=== PATIENT | male | born 1935 | race Caucasian/White ===

== ENCOUNTER 2017-04-16 10:11 | Inpatient (IN) | payer MEDICARE, BC ==
[2017-04-16 10:50] LABS: Basophils # (A) 0.1 k/uL (0-0.2); Basophils % (A) 1 %; CH 31.5; CHCM 35.3; Eosinophils # (A) 0.2 k/uL (0-0.7); Eosinophils % (A) 2 %; HCT 45.4 % (39.0-53.0); HDW 2.38; HGB 15.1 gm/dL (13.0-17.5); Luc # (Auto) 0.19; Luc % (Auto) 2; Lymphocytes # (A) 0.7 k/uL (1.0-4.8); Lymphocytes % (A) 7 %; MCHC 33.4 g/dL (31.0-37.0); MCV 89.8 fL (80.0-100.0); Mean Platelet Volume 8.4; Monocytes # (A) 0.8 k/uL (0-1.0); Monocytes % (A) 8 %; Neutrophils # (A) 8.2 k/uL (1.3-7.7); Neutrophils % (A) 81 %; RBC 5.05 m/uL (4.30-5.90); RDW 13.5 % (11.5-15.5); WBC 10.1 k/uL (3.8-10.6); WBC (Perox) 9.73
--- NOTE | 2017-04-16 10:54 | ED ---
Weakness HPI - General Chief complaint: Weakness Stated complaint: Left side weakness/left leg infected Time Seen by Provider: 04/16/17 10:25 Source: patient, family, RN notes reviewed, old records reviewed Mode of arrival: wheelchair Limitations: no limitations - History of Present Illness Initial comments: This is an 81-year-old male with a history of a CVA with residual left-sided weakness from 1994 who was brought in by family today for evaluation for several issues. He apparently woke up with increased left lower extremity weakness also he has left leg swelling and redness he is currently being treated for a cellulitis and is on antibiotics which he's been on for about a week but it seems be getting worse. Additionally he's had a cough no reports of fevers chills or sweats no nausea no vomiting the patient does have left- sided upper extremity weakness which she states is no different than usual. Patient states he went to bed around 10 or 10:30 last evening and woke up with this new finding today. He has no other complaints at this time. MD Complaint: focal weakness - Related Data Home Medications Medication Instructions Recorded Confirmed Aspirin EC [Ecotrin Low Dose] 81 mg PO DAILY 04/16/17 04/16/17 Atenolol [Tenormin] 25 mg PO BID 04/16/17 04/16/17 Isosorbide Mononitrate ER [Imdur] 30 mg PO DAILY 04/16/17 04/16/17 Levothyroxine Sodium [Synthroid] 50 mcg PO DAILY 04/16/17 04/16/17 Multivit-Min/FA/Lycopen/Lutein 1 tab PO DAILY 04/16/17 04/16/17 [Centrum Silver Men Tablet] Simvastatin [Zocor] 20 mg PO HS 04/16/17 04/16/17 Sulfamethoxazole/Trimethoprim 1 tab PO BID 04/16/17 04/16/17 [Bactrim DS 800-160 mg] Valsartan [Diovan] 320 mg PO DAILY 04/16/17 04/16/17 amLODIPine BESYLATE [Norvasc] 5 mg PO BID 04/16/17 04/16/17 glipiZIDE XL [Glucotrol Xl] 2.5 mg PO DAILY 04/16/17 04/16/17 sitaGLIPtin PHOSPHATE [Januvia] 100 mg PO DAILY 04/16/17 04/16/17 Allergies Allergy/AdvReac Type Severity Reaction Status Date / Time No Known Allergies Allergy Verified 04/16/17 10:38 Review of Systems ROS Statement: Those systems with pertinent positive or pertinent negative responses have been documented in the HPI. ROS Other: All systems not noted in ROS Statement are negative. Past Medical History Past Medical History: Coronary Artery Disease (CAD), CVA/TIA, Diabetes Mellitus , Hyperlipidemia, Hypertension, Myocardial Infarction ([place]) History of Any Multi-Drug Resistant Organisms: None Reported Past Surgical History: Coronary Bypass/CABG Past Psychological History: No Psychological Hx Reported Smoking Status: Never smoker Past Alcohol Use History: None Reported Past Drug Use History: None Reported General Exam - General Exam Comments Initial Comments: This is a well-developed well-nourished awake alert oriented 3 male Limitations: no limitations General appearance: alert, in no apparent distress, other (Left facial asymmetry is noted which is residual from his previous stroke) Head exam: Present: normocephalic Eye exam: Present: normal appearance, PERRL, EOMI. Absent: scleral icterus, conjunctival injection, periorbital swelling ENT exam: Present: normal exam, mucous membranes moist Neck exam: Present: normal inspection. Absent: tenderness, meningismus, lymphadenopathy Respiratory exam: Present: rhonchi (Slight left basilar rhonchi), decreased breath sounds Cardiovascular Exam: Present: regular rate, normal rhythm, normal heart sounds. Absent: systolic murmur, diastolic murmur, rubs, gallop, clicks GI/Abdominal exam: Present: soft, normal bowel sounds. Absent: distended, tenderness, guarding, rebound, rigid Rectal exam: Present: deferred Extremities exam: Present: normal capillary refill, other (Left lower extremity demonstrates erythema with increased localized temperature and pedal edema up to the knee. Left upper extremity demonstrates hemiparesis). Absent: full ROM Neurological exam: Present: alert, oriented X3, other (Left facial asymmetry is noted left upper extremity hemiparesis left lower extremity hemiparesis) Psychiatric exam: Present: normal affect, normal mood Skin exam: Present: warm, dry. Absent: normal color Course Vital Signs 04/16/17 10:15 Temperature 97.2 F L Pulse Rate 60 Respiratory 18 Rate Blood Pressure 147/60 O2 Sat by Pulse 91 L Oximetry EKG Findings - EKG Results: EKG: interpreted by ERMD (Ventricular rate 62 QRS 168 daily since QTC of 478/ 485 red bundle-branch block) Medical Decision Making - Medical Decision Making I did discuss findings with patient family the CAT scan is negative for acute findings. X-ray does show evidence of CHF. Patient will be admitted to discuss case with Dr. Thompson. - Lab Data Result diagrams: 04/16/17 10:30 04/16/17 10:30 Lab Results 04/16/17 04/16/17 04/16/17 Range/Units 10:30 10:30 10:30 WBC 10.1 (3.8-10.6) k/uL RBC 5.05 (4.30-5.90) m/uL Hgb 15.1 (13.0-17.5) gm/dL Hct 45.4 (39.0-53.0) % MCV 89.8 (80.0-100.0) fL MCH 30.0 (25.0-35.0) pg MCHC 33.4 (31.0-37.0) g/dL RDW 13.5 (11.5-15.5) % Plt Count 227 (150-450) k/uL Neutrophils % 81 % Lymphocytes % 7 % Monocytes % 8 % Eosinophils % 2 % Basophils % 1 % Neutrophils # 8.2 H (1.3-7.7) k/uL Lymphocytes # 0.7 L (1.0-4.8) k/uL Monocytes # 0.8 (0-1.0) k/uL Eosinophils # 0.2 (0-0.7) k/uL Basophils # 0.1 (0-0.2) k/uL PT (9.0-12.0) sec INR (<1.2) APTT (22.0-30.0) sec Sodium 134 L (137-145) mmol/L Potassium 5.0 (3.5-5.1) mmol/L Chloride 99 (98-107) mmol/L Carbon Dioxide 26 (22-30) mmol/L Anion Gap 9 mmol/L BUN 25 H (9-20) mg/dL Creatinine 1.17 (0.66-1.25) mg/dL Est GFR (MDRD) Af Amer >60 (>60 ml/min/1.73 sqM) Est GFR (MDRD) Non-Af 60 (>60 ml/min/1.73 sqM) Glucose 182 H (74-99) mg/dL Calcium 8.5 (8.4-10.2) mg/dL Magnesium 2.0 (1.6-2.3) mg/dL Total Bilirubin 0.5 (0.2-1.3) mg/dL AST 24 (17-59) U/L ALT 26 (21-72) U/L Alkaline Phosphatase 57 (38-126) U/L Total Creatine Kinase 52 L (55-170) U/L CK-MB (CK-2) 0.9 (0.0-2.4) ng/mL CK-MB (CK-2) Rel Index 1.7 Troponin I <0.012 (0.000-0.034) ng/mL NT-Pro-B Natriuret Pep pg/mL Total Protein 6.3 (6.3-8.2) g/dL Albumin 3.1 L (3.5-5.0) g/dL Urine Color Urine Appearance (Clear) Urine pH (5.0-8.0) Ur Specific [place] (1.001-1.035) Urine Protein (Negative) Urine Glucose (UA) (Negative) Urine Ketones (Negative) Urine Blood (Negative) Urine Nitrite (Negative) Urine Bilirubin (Negative) Urine Urobilinogen (<2.0) mg/dL Ur Leukocyte Esterase (Negative) 04/16/17 04/16/17 04/16/17 Range/Units 10:30 10:30 11:25 WBC (3.8-10.6) k/uL RBC (4.30-5.90) m/uL Hgb (13.0-17.5) gm/dL Hct (39.0-53.0) % MCV (80.0-100.0) fL MCH (25.0-35.0) pg MCHC (31.0-37.0) g/dL RDW (11.5-15.5) % Plt Count (150-450) k/uL Neutrophils % % Lymphocytes % % Monocytes % % Eosinophils % % Basophils % % Neutrophils # (1.3-7.7) k/uL Lymphocytes # (1.0-4.8) k/uL Monocytes # (0-1.0) k/uL Eosinophils # (0-0.7) k/uL Basophils # (0-0.2) k/uL PT 12.2 H (9.0-12.0) sec INR 1.2 H (<1.2) APTT 26.7 (22.0-30.0) sec Sodium (137-145) mmol/L Potassium (3.5-5.1) mmol/L Chloride (98-107) mmol/L Carbon Dioxide (22-30) mmol/L Anion Gap mmol/L BUN (9-20) mg/dL Creatinine (0.66-1.25) mg/dL Est GFR (MDRD) Af Amer (>60 ml/min/1.73 sqM) Est GFR (MDRD) Non-Af (>60 ml/min/1.73 sqM) Glucose (74-99) mg/dL Calcium (8.4-10.2) mg/dL Magnesium (1.6-2.3) mg/dL Total Bilirubin (0.2-1.3) mg/dL AST (17-59) U/L ALT (21-72) U/L Alkaline Phosphatase (38-126) U/L Total Creatine Kinase (55-170) U/L CK-MB (CK-2) (0.0-2.4) ng/mL CK-MB (CK-2) Rel Index Troponin I (0.000-0.034) ng/mL NT-Pro-B Natriuret Pep 4000 pg/mL Total Protein (6.3-8.2) g/dL Albumin (3.5-5.0) g/dL Urine Color Yellow Urine Appearance Clear (Clear) Urine pH 6.0 (5.0-8.0) Ur Specific [place] 1.022 (1.001-1.035) Urine Protein Trace H (Negative) Urine Glucose (UA) Negative (Negative) Urine Ketones Negative (Negative) Urine Blood Negative (Negative) Urine Nitrite Negative (Negative) Urine Bilirubin Negative (Negative) Urine Urobilinogen <2.0 (<2.0) mg/dL Ur Leukocyte Esterase Negative (Negative) - Radiology Data Radiology results: report reviewed (I did review the imaging and report or is evidence of congestive heart failure.), image reviewed Critical Care Time Critical Care Time: Yes Critical Care Time: 31 minutes of critical care time which includes initial presentation with history physical labs x-rays reevaluation the patient response to therapy. Discussed with the patient family members on several occasions the findings. Discussed with the main physician admission orders documentation the above. Disposition Clinical Impression: Congestive heart failure (CHF), Left leg cellulitis, Failure of outpatient treatment, Hypoxemia Disposition: ADMITTED IP TO THIS HOSP Condition: Stable Referrals: Damian Andrew MD [Primary Care Provider] - 1-2 days Decision Time: 11:40
[2017-04-16 10:59] LABS: INR 1.2 (<1.2); Partial Thromboplastin Time 26.7 sec (22.0-30.0); Prothrombin Time 12.2 sec (9.0-12.0)
[2017-04-16 11:04] LABS: ALT 26 U/L (21-72); AST 24 U/L (17-59); Alkaline Phosphatase 57 U/L (38-126); Anion Gap 9 mmol/L; Blood Urea Nitrogen 25 mg/dL (9-20); Calcium 8.5 mg/dL (8.4-10.2); Carbon Dioxide 26 mmol/L (22-30); Chloride 99 mmol/L (98-107); Glucose 182 mg/dL (74-99); Non-African American GFR(MDRD) 60 (>60 ml/min/1.73 sqM); Sodium 134 mmol/L (137-145); Total Bilirubin 0.5 mg/dL (0.2-1.3); Total Protein 6.3 g/dL (6.3-8.2)
--- NOTE | 2017-04-16 11:07 | XR ---
EXAMINATION TYPE: XR chest 2V DATE OF EXAM: 04/16/2017 COMPARISON: 11/30/2013 HISTORY: Weakness TECHNIQUE: Frontal and lateral views of the chest are obtained. FINDINGS: Cardiomegaly is evident as well as mild pulmonary vascular congestion. Intact midline ster notomy wires are seen. Remainder the lungs are clear with no focal consolidation, pleural effusion or pneumothorax. Degenerative changes of the osseous structures and prior left mid clavicular fracture are noted diffuse demineralization is noted of the thoracic spine. IMPRESSION: Mild pulmonary vascular congestion and cardiomegaly that may relate to congestive heart failure. No focal consolidation.
[2017-04-16 11:09] LABS: Creatine Kinase 52 U/L (55-170)
--- NOTE | 2017-04-16 11:13 | CT ---
EXAMINATION TYPE: CT brain wo con DATE OF EXAM: 04/16/2017 COMPARISON: 11/27/2013 HISTORY: Patient complains of left leg weakness and infection. CT DLP: 849.2 mGycm. Automated Exposure Control for Dose Reduction was Utilized. TECHNIQUE: CT scan of the head is performed without contrast. FINDINGS: Encephalomalacia is noted within the right frontoparietal lobe with ex vacuo dilatation o f the lateral horn of the right ventricle. Confluent areas of hypoattenuation are seen within the sub cortical and periventricular white matter including the external capsules, most commonly relating to chronic microangiopathy. Symmetric prominence of the peripheral sulci and ventricular system compatible with age-related volum e loss. There is no acute intracranial hemorrhage, mass effect, or midline shift identified. The glob es are intact and the visualized sinuses are clear. Atherosclerosis is seen of the intracranial vascu lature. IMPRESSION: 1. No acute intracranial hemorrhage, mass effect, or midline shift is seen. 2. 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 3. Age-related volume loss and diffuse nonspecific white matter change, most likely related to chroni c microangiopathy.
[2017-04-16 11:21] LABS: Creatine Kinase MB 0.9 ng/mL (0.0-2.4); Troponin I <0.012 ng/mL (0.000-0.034)
[2017-04-16 11:36] LABS: Appearance,Urine Clear (Clear); Bilirubin,Urine Negative (Negative); Glucose,Urine (UA) Negative (Negative); Ketones,Urine Negative (Negative); Leukocyte Esterase,Urine Negative (Negative); Nitrite,Urine Negative (Negative); Protein,Urine Trace (Negative); Specific Gravity,Urine 1.022 (1.001-1.035); UA Billing (MACRO vs. MICRO) CHEM; Urobilinogen,Urine <2.0 mg/dL (<2.0)
[2017-04-16] MEDS ORDERED: NITROGLYCERIN OINT 1 INCH/GM PACKET TOPICAL STA (11:47)
[2017-04-16] MEDS ORDERED: FUROSEMIDE 10 MG/ML 4 ML VIAL IV STA (11:47)
[2017-04-16 12:37] LABS: Hemoglobin A1C 7.8 % (4.2-6.1)
[2017-04-16] MEDS: SODIUM CHLORIDE 0.9% 1,000 ML IV SCH (13:15)
[2017-04-16 16:39] LABS: Glucose,Whole Blood 116 mg/dL (75-99)
[2017-04-16] MEDS: CLINDAMYCIN 600 MG in DEXTROSE 5% IN WATER 50 ML IVPB SCH ×2 (17:59)
[2017-04-16] MEDS: NITROGLYCERIN OINT 1 INCH/GM PACKET TOPICAL SCH ×2 (18:02→21:00)
[2017-04-16] MEDS: ATORVASTATIN 10 MG TAB PO SCH (20:55)
[2017-04-16] MEDS: amLODIPine 5 MG TAB PO SCH (20:55)
[2017-04-16] MEDS: ATENOLOL 25 MG TAB PO SCH (20:55)
[2017-04-16] MEDS: FUROSEMIDE 10 MG/ML 4 ML VIAL IV SCH (20:56)
[2017-04-16] MEDS ORDERED: HEPARIN SODIUM,PORCINE 5,000 UNIT/ML 1 ML VIAL SQ SCH (21:00)
[2017-04-16 21:09] LABS: Glucose,Whole Blood 140 mg/dL (75-99)
[2017-04-17] MEDS: CLINDAMYCIN 600 MG in DEXTROSE 5% IN WATER 50 ML IVPB SCH ×8 (00:04→18:35)
[2017-04-17 06:01] LABS: Glucose,Whole Blood 111 mg/dL (75-99)
[2017-04-17] MEDS: LEVOTHYROXINE 50 MCG TAB PO SCH (06:45)
[2017-04-17] MEDS: ENOXAPARIN 40 MG/0.4 ML SYRINGE SQ SCH (08:53)
[2017-04-17] MEDS: NITROGLYCERIN OINT 1 INCH/GM PACKET TOPICAL SCH ×2 (08:54→12:02)
[2017-04-17] MEDS: amLODIPine 5 MG TAB PO SCH ×2 (08:54→20:15)
[2017-04-17] MEDS: ATENOLOL 25 MG TAB PO SCH ×2 (08:54→20:15)
[2017-04-17] MEDS: ISOSORBIDE MONONITRATE ER 30 MG TAB.ER.24H PO SCH (08:54)
[2017-04-17] MEDS: ASPIRIN 81 MG CHEW PO SCH (08:54)
[2017-04-17] MEDS: MULTIVITAMINS, THERA 1 EACH TAB PO SCH (08:54)
[2017-04-17] MEDS: VALSARTAN 160 MG TAB PO SCH (08:54)
[2017-04-17] MEDS: LINAGLIPTIN 5 MG TABLET PO SCH (08:56)
[2017-04-17] MEDS: FUROSEMIDE 10 MG/ML 4 ML VIAL IV SCH (08:57)
[2017-04-17 10:04] LABS: Calcium 8.7 mg/dL (8.4-10.2)
[2017-04-17 10:07] LABS: Basophils % (A) 0 %; CH 31.3; CHCM 34.7; Eosinophils # (A) 0.2 k/uL (0-0.7); Eosinophils % (A) 3 %; HCT 45.3 % (39.0-53.0); HDW 2.35; Luc # (Auto) 0.29; Luc % (Auto) 3; Lymphocytes # (A) 1.2 k/uL (1.0-4.8); Lymphocytes % (A) 14 %; MCH 30.1 pg (25.0-35.0); MCHC 33.2 g/dL (31.0-37.0); MCV 90.6 fL (80.0-100.0); Mean Platelet Volume 8.2; Monocytes # (A) 0.9 k/uL (0-1.0); Monocytes % (A) 10 %; Neutrophils # (A) 6.3 k/uL (1.3-7.7); Neutrophils % (A) 70 %; RDW 13.3 % (11.5-15.5); WBC 8.9 k/uL (3.8-10.6); WBC (Perox) 8.86
[2017-04-17 11:42] LABS: Glucose,Whole Blood 144 mg/dL (75-99)
[2017-04-17] MEDS: SODIUM CHLORIDE 0.9% 1,000 ML IV SCH (12:01)
[2017-04-17 14:00] VITALS: RESP 18
--- NOTE | 2017-04-17 14:38 | P.HPIM ---
History of Present Illness H&P Date: 04/17/17 Chief Complaint: Redness swelling of the left leg History of presenting complaint: This is a very pleasant 81-year-old patient of Dr. Brooks. Chronic stable medical conditions include coronary artery disease, stroke with left-sided weakness and dysarthria, diabetes, hypertension, hyperlipidemia, hypothyroid. Patient normally uses a wheelchair to get about. Patient had vein stripping done for the left leg. For his bypass. She presented redness of left lower extremity swelling some weeping blisters and presents for the same. Denies any fever minimal tenderness. Started on IV clindamycin the ER. ER thought patient may have CHF also put him on IV Lasix. The patient denies any shortness of breath. Denies any orthopnea. Denies any chest pain. GEN.: Tired EYES: None HEENT: None NECK: None RESPIRATORY: None CARDIOVASCULAR: None GASTROINTESTINAL: None GENITOURINARY: None MUSCULOSKELETAL: None LYMPHATICS: None HEMATOLOGICAL: None PSYCHIATRY: None NEUROLOGICAL: Dysarthria and some weakness on the left side. DERMATOLOGICAL: As above Past medical history: Coronary artery disease, stroke causing left-sided weakness and dysarthria, diabetes, hyperlipidemia, hypertension, hypothyroid, Past surgical history: Recorded bypass, cardiac cath and stent, bypass in 1994 at [facility], right carotid endarterectomy, bilateral cataract removals and lens implant, Home medications: Reviewed in computer ALLERGIES: None Social history: Lives by himself. No smoking or alcohol Family history: Father of a heart attack at age of 65 VITAL SIGNS: 97.2, 60, 18, 147-60, 91% room air GENERAL: Average built, sitting up, comfortable. EYES: Pupils equal. Conjunctiva normal. HEENT: External appearance of nose and ears normal, oral cavity grossly normal. NECK: JVD not raised; masses not palpable. HEART: First and second heart sounds are normal; edema especially of the left lower extremity, with fluid blisters. LUNGS: Respiratory rate normal; clear to auscultation. ABDOMEN: Soft, nontender, liver spleen not palpable, no masses palpable. LYMPHATICS: No lymph nodes palpable in the axilla and neck. PSYCH: Alert and oriented x3; mood and affect normal. NEUROLOGICAL: Cranial nerves grossly intact; no facial asymmetry, power and sensation grossly intact, dysarthria present, EXTREMITY: Redness of the left lower extremity below the knee, mild tenderness fluid blisters Investigations: wcc 10.1, hemoglobin 15.1, potassium 5, BUN 25, creatinine 1.17 EKG-right bundle branch block Assessment: - Left lower extreme the cellulitis acute below the knee -Lower extremity venous insufficiency more and than the left leg , from prior vein stripping, causing fluid blisters -No clinical evidence of CHF -Coronary artery disease with prior history of stent and bypass -Chronic dysarthria from chronic stroke -diabetes mellitus type 2 on oral hypoglycemic -Hyperlipidemia -Essential hypertension -Hypothyroid thyroidism -Chronic medical debility from stroke uses a wheelchair -Acute renal failure likely prerenal from diuresis Plan: Patient started on IV clindamycin. We'll use Silvadene cream with Kerlix and Adolfo wrap of lower extremity twice a day. Home medications were resumed. Care was discussed with the patient. Will DC patient's IV Lasix as patient does not seem to have CHF. We will gently hydrate the patient to improve his renal function. Check labs in the morning. Care was discussed with the patient. Past Medical History Past Medical History: Coronary Artery Disease (CAD), CVA/TIA, Diabetes Mellitus , Hyperlipidemia, Hypertension, Myocardial Infarction ([place]), Skin Disorder, Thyroid Disorder Additional Past Medical History / Comment(s): NIDDM type II, current cellulitis L lower leg, 1995 CVA with L sided weakness, gait dysfunction-pt is wheelchair bound, past L clavicle fx, hypothyroid. Last Myocardial Infarction Date:: 1994 History of Any Multi-Drug Resistant Organisms: None Reported Past Surgical History: Coronary Bypass/CABG, Heart Catheterization With Stent Additional Past Surgical History / Comment(s): Pt states he had 4 vessel CABG in 1994 at [facility] in [place], PCI with stent "several yrs ago," R caratid endartectomy, bilateral cataract removals with lens implants. Past Anesthesia/Blood Transfusion Reactions: No Reported Reaction Date of Last Stent Placement:: "several years ago." Past Psychological History: No Psychological Hx Reported Additional Psychological History / Comment(s): Pt resides alone in his own home. He is wheelchair bound. He has a caregiver who comes to the house from morning until noon and then comes back in the evenings. She assists his with ADLs. He manages his own medications. Everything he needs is on one level. He has meals on wheels. He does not drive, his brother has a wheelchair assessible van and takes pt to appts. He uses a L shoe with a brace. He needs assistance transferring into his wheelchair. Smoking Status: Never smoker Past Alcohol Use History: None Reported Past Drug Use History: None Reported - Past Family History Father Family Medical History: Myocardial Infarction (MS) Additional Family Medical History / Comment(s): Father of a MS at the age of 65 yrs. Mother Family Medical History: Myocardial Infarction (MS) Additional Family Medical History / Comment(s): Mother of a MS at the age of 69yrs. Medications and Allergies Home Medications Medication Instructions Recorded Confirmed Type Aspirin EC [Ecotrin Low Dose] 81 mg PO DAILY 04/16/17 04/16/17 History Atenolol [Tenormin] 25 mg PO BID 04/16/17 04/16/17 History Isosorbide Mononitrate ER [Imdur] 30 mg PO DAILY 04/16/17 04/16/17 History Levothyroxine Sodium [Synthroid] 50 mcg PO DAILY 04/16/17 04/16/17 History Multivit-Min/FA/Lycopen/Lutein 1 tab PO DAILY 04/16/17 04/16/17 History [Centrum Silver Men Tablet] Simvastatin [Zocor] 20 mg PO HS 04/16/17 04/16/17 History Sulfamethoxazole/Trimethoprim 1 tab PO BID 04/16/17 04/16/17 History [Bactrim DS 800-160 mg] Valsartan [Diovan] 320 mg PO DAILY 04/16/17 04/16/17 History amLODIPine BESYLATE [Norvasc] 5 mg PO BID 04/16/17 04/16/17 History glipiZIDE XL [Glucotrol Xl] 2.5 mg PO DAILY 04/16/17 04/16/17 History sitaGLIPtin PHOSPHATE [Januvia] 100 mg PO DAILY 04/16/17 04/16/17 History Allergies Allergy/AdvReac Type Severity Reaction Status Date / Time No Known Allergies Allergy Verified 04/16/17 10:38 Results CBC & Chem 7: 04/17/17 09:32 04/17/17 09:32
[2017-04-17 16:45] LABS: Glucose,Whole Blood 81 mg/dL (75-99)
[2017-04-17] MEDS: SODIUM CHLORIDE 0.45% 1,000 ML IV SCH (19:52)
[2017-04-17] MEDS: ATORVASTATIN 10 MG TAB PO SCH (20:15)
[2017-04-17 20:54] LABS: Glucose,Whole Blood 129 mg/dL (75-99)
[2017-04-18] MEDS: CLINDAMYCIN 600 MG in DEXTROSE 5% IN WATER 50 ML IVPB SCH ×8 (00:11→18:34)
[2017-04-18] MEDS: LEVOTHYROXINE 50 MCG TAB PO SCH (05:50)
[2017-04-18 06:06] LABS: Glucose,Whole Blood 112 mg/dL (75-99)
[2017-04-18 06:39] LABS: Basophils % (A) 0 %; CH 31.4; CHCM 34.8; Eosinophils # (A) 0.6 k/uL (0-0.7); Eosinophils % (A) 6 %; HCT 42.3 % (39.0-53.0); HDW 2.38; HGB 14.3 gm/dL (13.0-17.5); Luc # (Auto) 0.37; Luc % (Auto) 4; Lymphocytes # (A) 1.5 k/uL (1.0-4.8); Lymphocytes % (A) 16 %; MCH 30.6 pg (25.0-35.0); MCHC 33.8 g/dL (31.0-37.0); MCV 90.6 fL (80.0-100.0); Mean Platelet Volume 8.3; Monocytes % (A) 11 %; Neutrophils # (A) 5.7 k/uL (1.3-7.7); Neutrophils % (A) 62 %; RBC 4.67 m/uL (4.30-5.90); RDW 13.5 % (11.5-15.5); WBC 9.1 k/uL (3.8-10.6); WBC (Perox) 8.97
[2017-04-18 06:58] LABS: Calcium 8.3 mg/dL (8.4-10.2); Potassium 4.2 mmol/L (3.5-5.1)
[2017-04-18] MEDS: amLODIPine 5 MG TAB PO SCH ×2 (08:04→19:51)
[2017-04-18] MEDS: LINAGLIPTIN 5 MG TABLET PO SCH (08:04)
[2017-04-18] MEDS: VALSARTAN 160 MG TAB PO SCH (08:04)
[2017-04-18] MEDS: ASPIRIN 81 MG CHEW PO SCH (08:04)
[2017-04-18] MEDS: ENOXAPARIN 40 MG/0.4 ML SYRINGE SQ SCH (08:04)
[2017-04-18] MEDS: ISOSORBIDE MONONITRATE ER 30 MG TAB.ER.24H PO SCH (08:04)
[2017-04-18] MEDS: ATENOLOL 25 MG TAB PO SCH ×2 (08:04→19:51)
[2017-04-18] MEDS ORDERED: FUROSEMIDE 10 MG/ML 2 ML VIAL IV ONE (09:26)
--- NOTE | 2017-04-18 09:52 | XR ---
EXAMINATION TYPE: XR chest 1V portable DATE OF EXAM: 04/18/2017 COMPARISON: 04/16/2017 INDICATION: Short of breath, cough TECHNIQUE: Single frontal view of the chest is obtained. FINDINGS: The heart size is normal. The pulmonary vasculature is normal. Left basilar infiltrate may be present. There is silhouetting left diaphragm. Findings are stable from 04/16/2017 IMPRESSION: 1. Left basilar infiltrate. Correlate for atelectasis and pneumonia. Continued follow-up is recommend ed.
[2017-04-18 10:04] VITALS: BMI 27.9
[2017-04-18] MEDS: MULTIVITAMINS, THERA 1 EACH TAB PO SCH (10:47)
[2017-04-18] MEDS: SODIUM CHLORIDE 0.45% 1,000 ML IV SCH (10:51)
[2017-04-18 11:55] LABS: Glucose,Whole Blood 119 mg/dL (75-99)
[2017-04-18 16:43] LABS: Glucose,Whole Blood 112 mg/dL (75-99)
--- NOTE | 2017-04-18 17:19 | P.HPIM ---
History of Present Illness H&P Date: 04/16/17 H&P Date: 04/17/17 Chief Complaint: Redness swelling of the left leg History of presenting complaint: This is a very pleasant 81-year-old patient of Dr. Brooks. Chronic stable medical conditions include coronary artery disease, stroke with left-sided weakness and dysarthria, diabetes, hypertension, hyperlipidemia, hypothyroid. Patient normally uses a wheelchair to get about. Patient had vein stripping done for the left leg. For his bypass. She presented redness of left lower extremity swelling some weeping blisters and presents for the same. Denies any fever minimal tenderness. Started on IV clindamycin the ER. ER thought patient may have CHF also put him on IV Lasix. The patient denies any shortness of breath. Denies any orthopnea. Denies any chest pain. GEN.: Tired EYES: None HEENT: None NECK: None RESPIRATORY: None CARDIOVASCULAR: None GASTROINTESTINAL: None GENITOURINARY: None MUSCULOSKELETAL: None LYMPHATICS: None HEMATOLOGICAL: None PSYCHIATRY: None NEUROLOGICAL: Dysarthria and some weakness on the left side. DERMATOLOGICAL: As above Past medical history: Coronary artery disease, stroke causing left-sided weakness and dysarthria, diabetes, hyperlipidemia, hypertension, hypothyroid, Past surgical history: Recorded bypass, cardiac cath and stent, bypass in 1994 at [facility], right carotid endarterectomy, bilateral cataract removals and lens implant, Home medications: Reviewed in computer ALLERGIES: None Social history: Lives by himself. No smoking or alcohol Family history: Father of a heart attack at age of 65 VITAL SIGNS: 97.2, 60, 18, 147-60, 91% room air GENERAL: Average built, sitting up, comfortable. EYES: Pupils equal. Conjunctiva normal. HEENT: External appearance of nose and ears normal, oral cavity grossly normal. NECK: JVD not raised; masses not palpable. HEART: First and second heart sounds are normal; edema especially of the left lower extremity, with fluid blisters. LUNGS: Respiratory rate normal; clear to auscultation. ABDOMEN: Soft, nontender, liver spleen not palpable, no masses palpable. LYMPHATICS: No lymph nodes palpable in the axilla and neck. PSYCH: Alert and oriented x3; mood and affect normal. NEUROLOGICAL: Cranial nerves grossly intact; no facial asymmetry, power and sensation grossly intact, dysarthria present, EXTREMITY: Redness of the left lower extremity below the knee, mild tenderness fluid blisters Investigations: wcc 10.1, hemoglobin 15.1, potassium 5, BUN 25, creatinine 1.17 EKG-right bundle branch block Assessment: - Left lower extreme the cellulitis acute below the knee -Lower extremity venous insufficiency more and than the left leg , from prior vein stripping, causing fluid blisters -No clinical evidence of CHF -Coronary artery disease with prior history of stent and bypass -Chronic dysarthria from chronic stroke -diabetes mellitus type 2 on oral hypoglycemic -Hyperlipidemia -Essential hypertension -Hypothyroid thyroidism -Chronic medical debility from stroke uses a wheelchair -Acute renal failure likely prerenal from diuresis Plan: Patient started on IV clindamycin. We'll use Silvadene cream with Kerlix and Adolfo wrap of lower extremity twice a day. Home medications were resumed. Care was discussed with the patient. Will DC patient's IV Lasix as patient does not seem to have CHF. We will gently hydrate the patient to improve his renal function. Check labs in the morning. Care was discussed with the patient. Past Medical History Past Medical History: Coronary Artery Disease (CAD), CVA/TIA, Diabetes Mellitus , Hyperlipidemia, Hypertension, Myocardial Infarction (CA), Skin Disorder, Thyroid Disorder Additional Past Medical History / Comment(s): NIDDM type II, current cellulitis L lower leg, 1995 CVA with L sided weakness, gait dysfunction-pt is wheelchair bound, past L clavicle fx, hypothyroid. Last Myocardial Infarction Date:: 1994 History of Any Multi-Drug Resistant Organisms: None Reported Past Surgical History: Coronary Bypass/CABG, Heart Catheterization With Stent Additional Past Surgical History / Comment(s): Pt states he had 4 vessel CABG in 1994 at [facility] in [place], PCI with stent "several yrs ago," R caratid endartectomy, bilateral cataract removals with lens implants. Past Anesthesia/Blood Transfusion Reactions: No Reported Reaction Date of Last Stent Placement:: "several years ago." Past Psychological History: No Psychological Hx Reported Additional Psychological History / Comment(s): Pt resides alone in his own home. He is wheelchair bound. He has a caregiver who comes to the house from morning until noon and then comes back in the evenings. She assists his with ADLs. He manages his own medications. Everything he needs is on one level. He has meals on wheels. He does not drive, his brother has a wheelchair assessible van and takes pt to appts. He uses a L shoe with a brace. He needs assistance transferring into his wheelchair. Smoking Status: Never smoker Past Alcohol Use History: None Reported Past Drug Use History: None Reported - Past Family History Father Family Medical History: Myocardial Infarction (CA) Additional Family Medical History / Comment(s): Father of a CA at the age of 65 yrs. Mother Family Medical History: Myocardial Infarction (CA) Additional Family Medical History / Comment(s): Mother of a CA at the age of 69yrs. Medications and Allergies Home Medications Medication Instructions Recorded Confirmed Type Aspirin EC [Ecotrin Low Dose] 81 mg PO DAILY 04/16/17 04/16/17 History Atenolol [Tenormin] 25 mg PO BID 04/16/17 04/16/17 History Isosorbide Mononitrate ER [Imdur] 30 mg PO DAILY 04/16/17 04/16/17 History Levothyroxine Sodium [Synthroid] 50 mcg PO DAILY 04/16/17 04/16/17 History Multivit-Min/FA/Lycopen/Lutein 1 tab PO DAILY 04/16/17 04/16/17 History [Centrum Silver Men Tablet] Simvastatin [Zocor] 20 mg PO HS 04/16/17 04/16/17 History Sulfamethoxazole/Trimethoprim 1 tab PO BID 04/16/17 04/16/17 History [Bactrim DS 800-160 mg] Valsartan [Diovan] 320 mg PO DAILY 04/16/17 04/16/17 History amLODIPine BESYLATE [Norvasc] 5 mg PO BID 04/16/17 04/16/17 History glipiZIDE XL [Glucotrol Xl] 2.5 mg PO DAILY 04/16/17 04/16/17 History sitaGLIPtin PHOSPHATE [Januvia] 100 mg PO DAILY 04/16/17 04/16/17 History Allergies Allergy/AdvReac Type Severity Reaction Status Date / Time No Known Allergies Allergy Verified 04/16/17 10:38 Results CBC & Chem 7: 04/17/17 09:32 04/17/17 09:32 Additional CC's: Damian Andrew Past Medical History Past Medical History: Coronary Artery Disease (CAD), CVA/TIA, Diabetes Mellitus , Hyperlipidemia, Hypertension, Myocardial Infarction (CA), Skin Disorder, Thyroid Disorder Additional Past Medical History / Comment(s): NIDDM type II, current cellulitis L lower leg, 1995 CVA with L sided weakness, gait dysfunction-pt is wheelchair bound, past L clavicle fx, hypothyroid. Last Myocardial Infarction Date:: 1994 History of Any Multi-Drug Resistant Organisms: None Reported Past Surgical History: Coronary Bypass/CABG, Heart Catheterization With Stent Additional Past Surgical History / Comment(s): Pt states he had 4 vessel CABG in 1994 at [facility] in [place], PCI with stent "several yrs ago," R caratid endartectomy, bilateral cataract removals with lens implants. Past Anesthesia/Blood Transfusion Reactions: No Reported Reaction Date of Last Stent Placement:: "several years ago." Past Psychological History: No Psychological Hx Reported Additional Psychological History / Comment(s): Pt resides alone in his own home. He is wheelchair bound. He has a caregiver who comes to the house from morning until noon and then comes back in the evenings. She assists his with ADLs. He manages his own medications. Everything he needs is on one level. He has meals on wheels. He does not drive, his brother has a wheelchair assessible van and takes pt to app. He uses a L shoe with a brace. He needs assistance transferring into his wheelchair. Smoking Status: Never smoker Past Alcohol Use History: None Reported Past Drug Use History: None Reported - Past Family History Father Family Medical History: Myocardial Infarction (CA) Additional Family Medical History / Comment(s): Father of a CA at the age of 65 yrs. Mother Family Medical History: Myocardial Infarction (CA) Additional Family Medical History / Comment(s): Mother of a CA at the age of 69yrs. Medications and Allergies Home Medications Medication Instructions Recorded Confirmed Type Aspirin EC [Ecotrin Low Dose] 81 mg PO DAILY 04/16/17 04/16/17 History Atenolol [Tenormin] 25 mg PO BID 04/16/17 04/16/17 History Isosorbide Mononitrate ER [Imdur] 30 mg PO DAILY 04/16/17 04/16/17 History Levothyroxine Sodium [Synthroid] 50 mcg PO DAILY 04/16/17 04/16/17 History Multivit-Min/FA/Lycopen/Lutein 1 tab PO DAILY 04/16/17 04/16/17 History [Centrum Silver Men Tablet] Simvastatin [Zocor] 20 mg PO HS 04/16/17 04/16/17 History Sulfamethoxazole/Trimethoprim 1 tab PO BID 04/16/17 04/16/17 History [Bactrim DS 800-160 mg] Valsartan [Diovan] 320 mg PO DAILY 04/16/17 04/16/17 History amLODIPine BESYLATE [Norvasc] 5 mg PO BID 04/16/17 04/16/17 History glipiZIDE XL [Glucotrol Xl] 2.5 mg PO DAILY 04/16/17 04/16/17 History sitaGLIPtin PHOSPHATE [Januvia] 100 mg PO DAILY 04/16/17 04/16/17 History Allergies Allergy/AdvReac Type Severity Reaction Status Date / Time No Known Allergies Allergy Verified 04/16/17 10:38 Physical Exam Vitals: Vital Signs Temp Pulse Pulse Resp BP BP Pulse Ox 04/17/17 04:00 98.2 F 58 L 18 111/54 93 L 04/17/17 00:00 97.1 F L 62 20 115/66 92 L 04/16/17 20:30 98.3 F 65 18 126/70 91 L 04/16/17 15:28 98.0 F 76 16 147/112 96 04/16/17 14:45 96 18 149/95 100 04/16/17 14:11 72 18 118/58 93 L 04/16/17 13:21 60 20 122/81 95 04/16/17 10:30 20 04/16/17 10:15 97.2 F L 60 18 147/60 91 L Intake and Output 04/16/17 04/17/17 04/17/17 22:59 06:59 14:59 Intake Total 236 Output Total 600 150 Balance -364 -150 Intake: Oral 236 Output: Urine 600 150 Other: Voiding Method Urinal # Voids 2 2 Results CBC & Chem 7: 04/18/17 06:13 04/18/17 06:13 Labs: Abnormal Lab Results - Last 24 Hours (Table) 04/16/17 04/16/1704/16/17 Range/Units 10:30 10:30 10:30 Neutrophils # 8.2 H (1.3-7.7) k/uL Lymphocytes # 0.7 L (1.0-4.8) k/uL PT (9.0-12.0) sec INR (<1.2) Sodium 134 L (137-145) mmol/L BUN 25 H (9-20) mg/dL Glucose 182 H (74-99) mg/dL POC Glucose (mg/dL) (75-99) mg/dL Hemoglobin A1c (4.2-6.1) % Total Creatine Kinase 52 L (55-170) U/L Albumin 3.1 L (3.5-5.0) g/dL Urine Protein (Negative) 04/16/17 04/16/17 04/16/17 Range/Units 10:30 10:30 11:25 Neutrophils # (1.3-7.7) k/uL Lymphocytes # (1.0-4.8) k/uL PT 12.2 H (9.0-12.0) sec INR 1.2 H (<1.2) Sodium (137-145) mmol/L BUN (9-20) mg/dL Glucose (74-99) mg/dL POC Glucose (mg/dL) (75-99) mg/dL Hemoglobin A1c 7.8 H (4.2-6.1) % Total Creatine Kinase (55-170) U/L Albumin (3.5-5.0) g/dL Urine Protein Trace H (Negative) 04/16/17 04/16/17 04/17/17 Range/Units 16:26 21:07 05:59 Neutrophils # (1.3-7.7) k/uL Lymphocytes # (1.0-4.8) k/uL PT (9.0-12.0) sec INR (<1.2) Sodium (137-145) mmol/L BUN (9-20) mg/dL Glucose (74-99) mg/dL POC Glucose (mg/dL) 116 H 140 H 111 H (75-99) mg/dL Hemoglobin A1c (4.2-6.1) % Total Creatine Kinase (55-170) U/L Albumin (3.5-5.0) g/dL Urine Protein (Negative) Thrombosis Risk Factor Assmnt - Choose All That Apply Any of the Below Risk Factors Present?: Yes Each Factor Represents 1 point: Heart failure (<1month), Obesity (BMI >25) Other Risk Factors: Yes Each Risk Factor Represents 3 Points: Age 75 years or older Other congenital or acquired thrombophilia - If yes, enter type in comment: No Thrombosis Risk Factor Assessment Total Risk Factor Score: 5 Thrombosis Risk Factor Assessment Level: High Risk
--- NOTE | 2017-04-18 17:31 | P.PN ---
<Leeanne Cotton - Last Filed: 04/18/17 17:20> Progress Note - Text DATE OF SERVICE: 04/18/2017 PRESENTING COMPLAINT: Left leg redness and swelling HISTORY OF PRESENT ILLNESS: 81-year-old patient presented with left lower extremity swelling some weeping blisters. Started on IV clindamycin. Presented with concerns for CHF and added IV Lasix. INTERVAL HISTORY: 05/07/2017: Sitting up in the chair, visiting with family. Appears comfortable. Continues on clindamycin left lower extremity improving. Breathing easily IV Lasix discontinued as he had a rise in his kidney function due to Lasix use. Tolerating his diet eating 50-75%. Ambulatory with assistance, last BM 2016 REVIEW OF SYSTEMS: Done for constitutional ,cardiovascular, GI, pulmonary with relevant findings as above. CURRENT MEDICATIONS Norvasc, aspirin, Tenormin, Lipitor, Lovenox, Glucotrol, Imdur, levothyroxine, linagliptin Silvadene cream. PHYSICAL EXAM VITAL SIGNS: Temperature 98.5, pulse 60, respirations 18, blood pressure 134/63, oxygen saturation 93% on 3 L. GENERAL APPEARANCE: Sitting in the chair, not in distress. EYES: Pupils equal. Conjunctiva normal. NECK: JVD not raised. Mass not palpable. RESPIRATORY: Respiratory effort normal. Lungs clear to auscultation. CARDIOVASCULAR: First and second sounds normal. No edema. ABDOMEN: Soft. Liver and spleen not palpable. No tenderness. No mass palpable. PSYCHIATRY: Alert and oriented x3. Mood and affect normal. INVESTIGATIONS: CBC unremarkable, sodium 135, potassium 4.2, BUN 32, creatinine 1.43, blood glucose reviewed ASSESSMENT: - Left lower extreme the cellulitis acute below the knee, improving -Lower extremity venous insufficiency more and than the left leg , from prior vein stripping, causing fluid blisters -No clinical evidence of CHF -Coronary artery disease with prior history of stent and bypass -Chronic dysarthria from chronic stroke -diabetes mellitus type 2 on oral hypoglycemic -Hyperlipidemia -Essential hypertension -Hypothyroid thyroidism -Chronic medical debility from stroke uses a wheelchair -Acute renal failure likely prerenal from diuresis PLAN: Continue clindamycin IV, Silvadene and Kerlix with Adolfo wraps for the lower extremity which is improving. IV Lasix stopped as patient does not seem to have CHF. Sitting gentle hydration for kidney function. HEBREW [facility]ANTOR statement: Patient was seen and examined by nurse practitioner Leeanne Cotton and all elements of the case discussed with attending Dr. Thompson <Yinka Thompson - Last Filed: 04/18/17 21:36> Progress Note - Text Attending note. Date of service-04/18/2017 This patient was seen and examined by me . Discussed the patient with my nurse practitioner Ms. Cotton. Left leg redness is much improved. Edema is going down. Tolerating his diet. On examination: Sitting up in a chair. Lungs are clear. Investigations: BUN 32, creatinine 1.43 Assessment and plan: Acute left leg cellulitis, improving. Acute renal failure prerenal numbers started to come down. Check labs in the morning. If stable can probably go home. Changed to by mouth antibiotic
[2017-04-18] MEDS: ATORVASTATIN 10 MG TAB PO SCH (19:51)
[2017-04-18 20:44] LABS: Glucose,Whole Blood 293 mg/dL (75-99)
[2017-04-18 20:46] LABS: Glucose,Whole Blood 246 mg/dL (75-99)
[2017-04-18 21:14] LABS: Glucose,Whole Blood 172 mg/dL (75-99)
[2017-04-18] MEDS: CEPHALEXIN 500 MG CAP PO SCH (22:17)
[2017-04-19 04:34] VITALS: PULSE 58
[2017-04-19 06:05] LABS: Glucose,Whole Blood 113 mg/dL (75-99)
[2017-04-19 06:05] LABS: Basophils % (A) 0 %; CH 29.7; CHCM 33.4; Eosinophils # (A) 0.7 k/uL (0-0.7); Eosinophils % (A) 8 %; HCT 42.4 % (39.0-53.0); HGB 14.3 gm/dL (13.0-17.5); Luc % (Auto) 4; Lymphocytes # (A) 1.8 k/uL (1.0-4.8); Lymphocytes % (A) 23 %; MCH 30.2 pg (25.0-35.0); MCHC 33.8 g/dL (31.0-37.0); MCV 89.5 fL (80.0-100.0); Mean Platelet Volume 7.8; Monocytes # (A) 0.7 k/uL (0-1.0); Monocytes % (A) 9 %; Neutrophils # (A) 4.5 k/uL (1.3-7.7); Neutrophils % (A) 56 %; RBC 4.73 m/uL (4.30-5.90); RDW 12.7 % (11.5-15.5); WBC (Perox) 8.36
[2017-04-19 06:18] LABS: Anion Gap 7 mmol/L; Blood Urea Nitrogen 32 mg/dL (9-20); Calcium 8.4 mg/dL (8.4-10.2); Carbon Dioxide 30 mmol/L (22-30); Chloride 100 mmol/L (98-107); Glucose 116 mg/dL (74-99); Non-African American GFR(MDRD) >60 (>60 ml/min/1.73 sqM); Potassium 4.5 mmol/L (3.5-5.1); Sodium 137 mmol/L (137-145)
[2017-04-19] MEDS: LEVOTHYROXINE 50 MCG TAB PO SCH (06:48)
[2017-04-19] MEDS: CEPHALEXIN 500 MG CAP PO SCH (08:01)
[2017-04-19] MEDS: LINAGLIPTIN 5 MG TABLET PO SCH (08:02)
[2017-04-19] MEDS: ATENOLOL 25 MG TAB PO SCH (08:02)
[2017-04-19] MEDS: amLODIPine 5 MG TAB PO SCH (08:02)
[2017-04-19] MEDS: ENOXAPARIN 40 MG/0.4 ML SYRINGE SQ SCH (08:02)
[2017-04-19] MEDS: ISOSORBIDE MONONITRATE ER 30 MG TAB.ER.24H PO SCH (08:02)
[2017-04-19] MEDS: VALSARTAN 160 MG TAB PO SCH (08:02)
[2017-04-19] MEDS: MULTIVITAMINS, THERA 1 EACH TAB PO SCH (08:02)
[2017-04-19] MEDS: ASPIRIN 81 MG CHEW PO SCH (08:02)
[2017-04-19 08:20] VITALS: BP 138/70; TEMP 96.5
[2017-04-19] MEDS: SODIUM CHLORIDE 0.45% 1,000 ML IV SCH (08:52)
[2017-04-19 11:49] LABS: Glucose,Whole Blood 128 mg/dL (75-99)
--- NOTE | 2017-04-19 18:12 | P.DS ---
<Leeanne Cotton - Last Filed: 04/19/17 18:01> Providers Date of admission: 04/16/17 11:59 Expected date of discharge: 04/19/17 Attending physician: Yinka Thompson Primary care physician: Damian Andrew [facility] Course: FINAL DIAGNOSES: - Left lower extreme the cellulitis acute below the knee -Lower extremity venous insufficiency more and than the left leg , from prior vein stripping, causing fluid blisters -No clinical evidence of CHF -Coronary artery disease with prior history of stent and bypass -Chronic dysarthria from chronic stroke -diabetes mellitus type 2 on oral hypoglycemic -Hyperlipidemia -Essential hypertension -Hypothyroid thyroidism -Chronic medical debility from stroke uses a wheelchair -Acute renal failure likely prerenal from diuresis HOSPTIAL COURSE: 81-year-old male presented with left lower extremity swelling from some weeping blisters As well as some component of CHF received IV Lasix in the emergency department. Although he received Lasix he had no clinical symptoms of CHF and Lasix was subsequently stopped. Admitted with left lower extremity cellulitis. IV clindamycin started, Silvadene cream and Curlex with Adolfo wraps for the lower extremity. Renal function increased likely due to diuretic use and IV fluids were provided for gentle hydration to improve kidney function. Left lower extremity improved swelling and redness reduced kidney function improved. Tolerating his diet, moving his bowels. Gets around in his wheelchair. Overall condition stabilized and as such patient is ready to be discharged home. 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 Thompson DISPOSITION: Home to the care of his family with home care Patient Condition at Discharge: Stable Plan - Discharge Summary New Discharge Prescriptions: New SILVER sulfADIAZINE CREAM [Silvadene Cream] 1 tub TOPICAL BID #1 dose Cephalexin [Keflex] 500 mg PO TID #15 cap Cephalexin [Keflex] 500 mg PO TID #15 cap Continue amLODIPine BESYLATE [Norvasc] 5 mg PO BID Valsartan [Diovan] 320 mg PO DAILY Aspirin EC [Ecotrin Low Dose] 81 mg PO DAILY glipiZIDE XL [Glucotrol XL] 2.5 mg PO DAILY Levothyroxine Sodium [Synthroid] 50 mcg PO DAILY Isosorbide Mononitrate ER [Imdur] 30 mg PO DAILY Atenolol [Tenormin] 25 mg PO BID sitaGLIPtin PHOSPHATE [Januvia] 100 mg PO DAILY Simvastatin [Zocor] 20 mg PO HS Multivit-Min/FA/Lycopen/Lutein [Centrum Silver Men Tablet] 1 tab PO DAILY Discontinued Sulfamethoxazole/Trimethoprim [Bactrim DS 800-160 mg] 1 tab PO BID Discharge Medication List Aspirin EC [Ecotrin Low Dose] 81 mg PO DAILY 04/16/17 [History] Atenolol [Tenormin] 25 mg PO BID 04/16/17 [History] Isosorbide Mononitrate ER [Imdur] 30 mg PO DAILY 04/16/17 [History] Levothyroxine Sodium [Synthroid] 50 mcg PO DAILY 04/16/17 [History] Multivit-Min/FA/Lycopen/Lutein [Centrum Silver Men Tablet] 1 tab PO DAILY [History] Simvastatin [Zocor] 20 mg PO HS 04/16/17 [History] Valsartan [Diovan] 320 mg PO DAILY 04/16/17 [History] amLODIPine BESYLATE [Norvasc] 5 mg PO BID 04/16/17 [History] glipiZIDE XL [Glucotrol XL] 2.5 mg PO DAILY 04/16/17 [History] sitaGLIPtin PHOSPHATE [Januvia] 100 mg PO DAILY 04/16/17 [History] Cephalexin [Keflex] 500 mg PO TID #15 cap 04/19/17 [Rx] Cephalexin [Keflex] 500 mg PO TID #15 cap 04/19/17 [Rx] SILVER sulfADIAZINE CREAM [Silvadene Cream] 1 tub TOPICAL BID #1 dose 04/19/17 [ Rx] Follow up Appointment(s)/Referral(s): [facility], [NON-STAFF] - 1 Week Damian Andrew MD [Primary Care Provider] - 3 Days (Call office on Friday to make appointment) Patient Instructions/Handouts: Cellulitis (DC) Activity/Diet/Wound Care/Special Instructions: silvajiane creme with kerlix and adolfo wraps Discharge Disposition: HOME WITH HOME HEALTH SERVICES <Yinka Thompson - Last Filed: 04/19/17 22:31> Hospital Course: Attending note. Date of service 04/19/2017 This patient was seen and examined by me . Discussed the patient with my nurse practitioner Ms. Cotton. Doing better. Swelling and redness gone down. On examination: Lungs-fair entry Investigations: Assessment and plan: Acute left foot actually cellulitis improved. Lower extremity venous insufficiency improved. Acute renal failure resolved. Discharge okay, care discussed with the patient
== END 2017-04-19 12:54 | disposition home health service (06) | DRG 603 ==
LOC: EC 10:11 → 6SEL 11:59
PROVIDERS: ADMIT Hospitalist; ATTEND Hospitalist
DX: L03.116 Cellulitis of left lower limb (principal); N17.9 Acute kidney failure, unspecified; G81.94 Hemiplegia, unspecified affecting left nondominant side; E11.9 Type 2 diabetes mellitus without complications; I87.2 Venous insufficiency (chronic) (peripheral); E03.9 Hypothyroidism, unspecified; E78.5 Hyperlipidemia, unspecified; I25.10 Atherosclerotic heart disease of native coronary artery without angina pectoris; I25.2 Old myocardial infarction; T50.1X5A Adverse effect of loop [high-ceiling] diuretics, initial encounter; R26.9 Unspecified abnormalities of gait and mobility; I10 Essential (primary) hypertension; I69.922 Dysarthria following unspecified cerebrovascular disease; Z79.84 Long term (current) use of oral hypoglycemic drugs; Z79.899 Other long term (current) drug therapy; Z95.1 Presence of aortocoronary bypass graft; Z95.5 Presence of coronary angioplasty implant and graft; Z99.3 Dependence on wheelchair; Z82.49 Family history of ischemic heart disease and other diseases of the circulatory system
CPT/HCPCS: 36415; 70450; 71010; 71020; 80048; 80053; 81003; 82550; 82553; 83036; 83735; 83880; 84484; 85025; 85610; 85730; 87040; 93005; 94760; 96361; 96374; 99291

== ENCOUNTER → 2019-01-06 | Outpatient (CLI) | payer MEDICARE, BC ==
--- NOTE | 2019-01-06 11:20 | US ---
EXAMINATION TYPE: US carotid duplex BILAT DATE OF EXAM: 01/06/2019 COMPARISON: NONE CLINICAL HISTORY: I63.9 Cerebral infarction, unspecified. Hx of stroke 1994 and TIA's after. Patient states having hx of right CCA blockage with surgery. Limited exam due to patient limited position EXAM MEASUREMENTS: RIGHT: Peak Systolic Velocity (PSV) cm/sec ----- Right CCA: 50.2 ----- Right ICA: 127 ----- Right ECA: 124 ICA/CCA ratio: 2.5 RIGHT: End Diastole cm/sec ----- Right CCA: 0.0 ----- Right ICA: 12.7 ----- Right ECA: 0.0 LEFT: Peak Systolic Velocity (PSV) cm/sec ----- Left CCA: 96.5 ----- Left ICA: 89.3 ----- Left ECA: 227 ICA/CCA ratio: 0.9 LEFT: End Diastole cm/sec ----- Left CCA: 0.0 ----- Left ICA: 14.6 ----- Left ECA: 0.0 VERTEBRALS (direction of flow): Right Vertebral: Antegrade Left Vertebral: unable to visualized Rhythm: Arrhythmia Plaque seen in bilateral bulbs creating shadow. Elevated left ECA. Grayscale, color Doppler, spectra l Doppler imaging performed of the carotid arteries. Waveform analysis shows mild elevation of the pr oximal internal carotid artery peak systolic velocity. No elevation of the end-diastolic velocity IMPRESSION: There is only mild peak systolic velocity elevation of the right internal carotid artery. No hemodynamic significant stenosis is suspected by Doppler, an indirect measurement of carotid sten osis Criteria for Assigning % of Stenosis / Diameter reduction (Estimation based on the indirect measurements of the internal carotid artery velocities (ICA PSV). 1. Normal (no stenosis)=ICA PSV < 125 cm/s: ratio < 2.0: ICA EDV<40 cm/s. 2. Less than 50% stenosis=ICA PSV < 125 cm/s: ratio < 2.0: ICA EDV<40 cm/s. 3. 50 to 69% stenosis=ICA PSV of 125 to 230 cm/s: ration 2.0 ? 4.0: ICA EDV 40-100 cm/s. 4. Greater than 70% stenosis to near occlusion= ICA PSV > 230 cm/s: ratio > 4.0: ICA EDV > 100 cm/s. 5. Near occlusion= ICA PSV velocities may be low or undetectable: variable ratio and ICA EDV. 6. Total occlusion=unable to detect flow.
== END | disposition home or self-care (01) ==
LOC: RADUSWWP 09:12
PROVIDERS: ATTEND Internal Medicine
DX: I63.9 Cerebral infarction, unspecified (principal)
CPT/HCPCS: 93880

== ENCOUNTER 2019-08-12 10:15 | Inpatient (IN) | payer MEDICARE ==
[2019-08-12] MEDS ORDERED: SODIUM CHLORIDE 0.9% 1,000 ML IV STA (10:39)
--- NOTE | 2019-08-12 10:49 | ED ---
General Adult HPI - General Chief complaint: Neuro Symptoms/Deficit Stated complaint: Neuro Time Seen by Provider: 08/12/19 10:20 Source: family, EMS, RN notes reviewed, old records reviewed (Reviewed records from [facility]) Mode of arrival: EMS Limitations: language barrier, altered mental status, physical limitation - History of Present Illness Initial comments: Patient is a nonverbal 83-year-old male presenting to the emergency Department as a transfer from [facility]. Patient was seen there and diagnosed with stroke. Patient last known well round 9:30 last night. Family is present and helps provide history. Patient does normally talk without difficulty. Patient is nonverbal today. Patient has eye deviation to the left. There was concern for right-sided neglect. Computed tomography scan did have evidence of developing left MCA infarct. Patient does have history of previous stroke that was reported by family as fairly severe 16 years ago. Patient does have chronic left-sided deficits from that. - Related Data Home Medications Medication Instructions Recorded Confirmed Aspirin EC [Ecotrin Low Dose] 81 mg PO DAILY 04/16/17 04/16/17 Atenolol [Tenormin] 25 mg PO BID 04/16/17 04/16/17 Isosorbide Mononitrate ER [Imdur] 30 mg PO DAILY 04/16/17 04/16/17 Levothyroxine Sodium [Synthroid] 50 mcg PO DAILY 04/16/17 04/16/17 Multivit-Min/FA/Lycopen/Lutein 1 tab PO DAILY 04/16/17 04/16/17 [Centrum Silver Men Tablet] Simvastatin [Zocor] 20 mg PO HS 04/16/17 04/16/17 Valsartan [Diovan] 320 mg PO DAILY 04/16/17 04/16/17 amLODIPine BESYLATE [Norvasc] 5 mg PO BID 04/16/17 04/16/17 glipiZIDE XL [Glucotrol XL] 2.5 mg PO DAILY 04/16/17 04/16/17 sitaGLIPtin PHOSPHATE [Januvia] 100 mg PO DAILY 04/16/17 04/16/17 Previous Rx's Medication Instructions Recorded Cephalexin [Keflex] 500 mg PO TID #15 cap 04/19/17 Cephalexin [Keflex] 500 mg PO TID #15 cap 04/19/17 SILVER sulfADIAZINE CREAM 1 tub TOPICAL BID #1 dose 04/19/17 [Silvadene Cream] Allergies Allergy/AdvReac Type Severity Reaction Status Date / Time No Known Allergies Allergy Verified 04/16/17 10:38 Review of Systems ROS Statement: Those systems with pertinent positive or pertinent negative responses have been documented in the HPI. ROS Other: All systems not noted in ROS Statement are negative. Limitations: ROS unobtainable due to patients medical condition Past Medical History Past Medical History: Coronary Artery Disease (CAD), CVA/TIA, Diabetes Mellitus, Hyperlipidemia, Hypertension, Myocardial Infarction ([place]), Skin Disorder, Thyroid Disorder Additional Past Medical History / Comment(s): NIDDM type II, current cellulitis L lower leg, 1995 CVA with L sided weakness, gait dysfunction-pt is wheelchair bound, past L clavicle fx, hypothyroid. Last Myocardial Infarction Date:: 1994 History of Any Multi-Drug Resistant Organisms: None Reported Past Surgical History: Coronary Bypass/CABG, Heart Catheterization With Stent Additional Past Surgical History / Comment(s): Pt states he had 4 vessel CABG in 1994 at [facility] in [place], PCI with stent "several yrs ago," R caratid endartectomy, bilateral cataract removals with lens implants. Past Anesthesia/Blood Transfusion Reactions: No Reported Reaction Date of Last Stent Placement:: "several years ago." Past Psychological History: No Psychological Hx Reported Smoking Status: Never smoker Past Alcohol Use History: None Reported Past Drug Use History: None Reported - Past Family History Father Family Medical History: Myocardial Infarction ([place]) Additional Family Medical History / Comment(s): Father of a [place] at the age of 65 yrs. Mother Family Medical History: Myocardial Infarction ([place]) Additional Family Medical History / Comment(s): Mother of a [place] at the age of 69yrs. General Exam Limitations: language barrier, altered mental status, physical limitation General appearance: alert, in no apparent distress, other (Nonverbal. Does not follow commands.) Head exam: Present: normocephalic Eye exam: Present: PERRL, other (Eye deviation to the left) ENT exam: Present: normal oropharynx Neck exam: Present: normal inspection Respiratory exam: Present: normal lung sounds bilaterally Cardiovascular Exam: Present: irregular rhythm GI/Abdominal exam: Present: soft. Absent: tenderness Extremities exam: Present: normal inspection Neurological exam: Present: alert, altered Expanded Neurological exam: Present: protecting the airway, other (Does not follow commands.) Speech: Present: total aphasia Motor strength exam: RUE: 3, LUE: 3, RLE: 2/1, LLE: 2/1 Eye Response: (4) open spontaneously Motor Response: (4) withdraws to pain Verbal Response: (1) no verbal response Psychiatric exam: Present: flat affect Skin exam: Present: normal color Course Vital Signs 08/12/19 08/12/19 08/12/19 10:23 10:30 10:45 Temperature 98 F Pulse Rate 63 76 84 Respiratory 16 16 16 Rate Blood Pressure 126/57 135/71 135/73 O2 Sat by Pulse 98 99 99 Oximetry 08/12/19 11:03 Temperature Pulse Rate 59 L Respiratory 16 Rate Blood Pressure 123/60 O2 Sat by Pulse 96 Oximetry Medical Decision Making - Medical Decision Making Case was discussed with Dr. Raymond who reviewed the films and said no large vessel occlusion. Patient can be medically admitted and consult neurology. Dr. Thompson has been paged for admission for Dr. Brooks. Disposition Clinical Impression: Cerebrovascular accident (CVA) Disposition: ADMITTED IP TO THIS HOSP Is patient prescribed a controlled substance at d/c from ED?: No Referrals: Damian Andrew MD [Primary Care Provider] - 1-2 days Decision Time: 11:27
[2019-08-12] MEDS ORDERED: ASPIRIN 325 MG TAB PO STA (11:28)
--- NOTE | 2019-08-12 11:32 | CT ---
EXAMINATION TYPE: CT angio head neck DATE OF EXAM: 08/12/2019 COMPARISON: Outside CT head 08/12/2019 HISTORY: 83-year-old male neurologic deficits, acute stroke suspected. Abnormal brain ct from [facility]. TECHNIQUE: Contiguous axial scanning of the head and neck performed with IV Contrast, patient injecte d with 65 mL of Isovue 370. Coronal/sagittal MIP reconstructions performed. 3-D reconstructions gener ated on a dedicated independent workstation. CT DLP: 561.8 mGycm Automated exposure control for dose reduction was used. FINDINGS: Neck: Some borderline size mediastinal lymph nodes are present. Large caliber to the main right pulmonary a rtery 2.6 cm suggests underlying pulmonary hypertension. Groundglass is present throughout the visual ized upper lungs. Correlation can be made to exclude CHF. Post surgical changes of CABG. Mild atherosclerotic calcifications with conventional branching anatom y. Right vertebral artery is dominant. Mild atherosclerotic narrowing at the origin of the left vertebra l artery. The V3 segment left vertebral artery is not clearly seen. There seems to be some reconstitution of th e V4 segment vertebral artery. Moderate atherosclerotic plaque at the right carotid bifurcation with irregular mild, less than 50% n arrowing along the proximal right ICA. There is focal atherosclerotic calcification causing a moderate narrowing at the upper cervical right ICA. Mild atherosclerotic change at the left bifurcation with mild, less than 20% narrowing. Scattered add itional mild atherosclerotic calcifications within the left ICA. HEAD: Again, there is nonvisualization of the V3 segment left vertebral artery and some reconstitution of t he V4 segment probably from retrograde flow. Basilar artery and right vertebral artery are patent. Irregular moderate atherosclerotic narrowing throughout the bilateral carotid siphons. Remainder of t he anterior circulation appears patent. No aneurysmal changes seen. IMPRESSION: NECK: 1. MILD ATHEROSCLEROTIC NARROWING WITHIN THE RIGHT GREATER THAN LEFT PROXIMAL ICA's. NO HEMODYNAMICAL LY SIGNIFICANT PROXIMAL ICA STENOSIS SEEN. 2. DOMINANT RIGHT VERTEBRAL ARTERY. 3. NONVISUALIZATION OF THE V3 SEGMENT LEFT VERTEBRAL ARTERY SUGGESTING AN AGE INDETERMINATE FOCAL OCC LUSION. 4. GROUNDGLASS IN THE VISUALIZED UPPER LUNGS. CORRELATE TO EXCLUDE MILD CHF. HEAD: 1. RECONSTITUTION OF THE V4 SEGMENT LEFT VERTEBRAL ARTERY AND LEFT PICA PROBABLY FROM RETROGRADE FLOW FROM THE BASILAR ARTERY. 2. MODERATE IRREGULAR ATHEROSCLEROTIC NARROWING THROUGHOUT THE BILATERAL CAROTID SIPHONS. OTHERWISE, NO LARGE VESSEL INTRACRANIAL ARTERIAL OCCLUSION IS SEEN.
[2019-08-12] MEDS: SODIUM CHLORIDE 0.9% 1,000 ML IV SCH ×2 (11:38→19:22)
[2019-08-12] MEDS ORDERED: ATORVASTATIN 80 MG TAB PO SCH (11:45)
[2019-08-12] MEDS ORDERED: ASPIRIN 300 MG SUPP RECTAL STA (12:31)
[2019-08-12] MEDS ORDERED: LORazepam 2 MG/ML INJ IV STA (13:14)
--- NOTE | 2019-08-12 13:35 | P.CNNES ---
History of Present Illness Consult date: 08/12/19 Requesting physician: Yevgeniy Schmidt Reason for Consult: CVA History of Present Illness: Patient is a 83-year-old right-handed male, who has history of a stroke with residual left hemiparesis about 16 years ago, but has been wheelchair-bound for the last 5 years poor but able to communicate well. He lives by himself with caregiver comes at his home. Patient apparently was fine last night when he went to bed at 10 PM. This morning when caregiver went in, found him a aphasic, right hemiparetic. EMS was called at 7:36 AM, in the event and the scene Patient was taken to [facility], and arrived there at 7:54 AM. Patient's last known well was 12 hours. Patient's blood sugar was 211. He had gaze to the left. Patient's blood pressure was 150/102 pulse rate 100 and respiration 20. Patient was brought to the [facility] at 8:22 AM. Patient underwent EKG, which showed atrial fibrillation with right bundle branch block. UA negative, Chem-7 showed sodium 147 potassium 3.3 BU and 26, creatinine 1.3. Liver panel is normal. CBC with WBC 9.1, hemoglobin 12.3 and platelets 386 chest x-ray showed pulmonary venous congestion with basilar infiltrates and/or atelectasis. Small effusions noted. Computed tomography scan of head without contrast showed decreased attenuation left MCA territory may reflect acute CVA. No intracranial hemorrhage or midline shift. Age- related atrophic and chronic small vessel ischemic change. Large area of remote right MCA territory infarct. Patient apparently is also on Apixaban 5 mg twice a day for atrial fibrillation. He is also on hydralazine, insulin, amlodipine, atenolol, glipizide, levothyroxine, simvastatin 20 mg and didn't know via as per discharge summary report from 07/03/2019. Patient was not a candidate for TPA, as he was on anticoagulant, and also that his last known well was 12 hours prior to presentation. Patient underwent CTA of head and neck, which revealed mild atherosclerotic narrowing within the right greater than left proximal ICA. No hemodynamically significant proximal ICA stenosis. Dominant right vertebral artery. Nonvisualization of the V3 segment left vertebral artery suggesting and age indeterminate focal occlusion. CT of the head showed reconstitution of the V4 segment left vertebral artery and left PICA probably from neutral good flow from the basilar artery. Moderate irregular atherosclerotic narrowing throughout the bilateral carotid siphons otherwise. No large vessel intracranial arterial occlusion seen. The ED staff discussed with stroke neuro intervention Dr. Raymond, who reviewed the films and sat there was no large vessel occlusion. Patient was admitted to the hospital with neurology consultation. Review of Systems ROS unobtainable: due to mental status Past Medical History Past Medical History: Coronary Artery Disease (CAD), CVA/TIA, Diabetes Mellitus, Hyperlipidemia, Hypertension, Myocardial Infarction ([place]), Skin Disorder, Thyroid Disorder Additional Past Medical History / Comment(s): NIDDM type II, current cellulitis L lower leg, 1995 CVA with L sided weakness, gait dysfunction-pt is wheelchair bound, past L clavicle fx, hypothyroid. Last Myocardial Infarction Date:: 1994 History of Any Multi-Drug Resistant Organisms: None Reported Past Surgical History: Coronary Bypass/CABG, Heart Catheterization With Stent Additional Past Surgical History / Comment(s): Pt states he had 4 vessel CABG in 1994 at [facility] in [place], PCI with stent "several yrs ago," R caratid endartectomy, bilateral cataract removals with lens implants. Past Anesthesia/Blood Transfusion Reactions: No Reported Reaction Date of Last Stent Placement:: "several years ago." Past Psychological History: No Psychological Hx Reported Smoking Status: Never smoker Past Alcohol Use History: None Reported Past Drug Use History: None Reported - Past Family History Father Family Medical History: Myocardial Infarction ([place]) Additional Family Medical History / Comment(s): Father of a [place] at the age of 65 yrs. Mother Family Medical History: Myocardial Infarction ([place]) Additional Family Medical History / Comment(s): Mother of a [place] at the age of 69yrs. Medications and Allergies Home Medications Medication Instructions Recorded Confirmed Type Atenolol [Tenormin] 25 mg PO BID 04/16/17 08/12/19 History Isosorbide Mononitrate ER [Imdur] 30 mg PO DAILY 04/16/17 08/12/19 History Simvastatin [Zocor] 20 mg PO HS 04/16/17 08/12/19 History amLODIPine BESYLATE [Norvasc] 5 mg PO BID 04/16/17 08/12/19 History sitaGLIPtin PHOSPHATE [Januvia] 100 mg PO DAILY 04/16/17 08/12/19 History Furosemide [Lasix] 40 mg PO DAILY 08/12/19 08/12/19 History Levothyroxine Sodium [Levoxyl] 50 mcg PO DAILY 08/12/19 08/12/19 History Sennosides/Docusate Sodium 1 tab PO BID 08/12/19 08/12/19 History [Senna-S Laxative Tablet] Theophylline 24 Hour [Jeff-24] 200 mg PO DAILY 08/12/19 08/12/19 History glipiZIDE [Glucotrol] 5 mg PO BID 08/12/19 08/12/19 History hydrALAZINE HCL [Apresoline] 50 mg PO Q8H 08/12/19 08/12/19 History Allergies Allergy/AdvReac Type Severity Reaction Status Date / Time No Known Allergies Allergy Verified 08/12/19 11:40 Physical Examination - Vital Signs Vital Signs: Vital Signs Temp Pulse Resp BP Pulse Ox 08/12/19 11:30 97.5 F L 68 18 132/74 96 08/12/19 11:03 59 L 16 123/60 96 08/12/19 10:45 84 16 135/73 99 08/12/19 10:30 76 16 135/71 99 08/12/19 10:23 98 F 63 16 126/57 98 Intake and Output 08/11/19 08/12/19 08/12/19 22:59 06:59 14:59 Other: Weight 85.729 kg On examination patient is an elderly male, who appears in mild distress, has left gaze and head deviation. Patient is completely mute, not able to speak any words. Not following commands. 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 His right side also appears weak, although does not appear flaccid. Pupils are round and reacting. He has bilateral Babinski. Reflexes are brisk. Tone is increased in all 4 extremities. Face symmetry is difficult to assess as his head is deviated to the left. Assessment and Plan Assessment: * 83-year-old male with history of atrial fibrillation, currently on anticoagulation with Apixaban 5 mg twice a day, developed acute onset of focal deficits with possible right hemiparesis and aphasia with left gaze deviation. 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 CTA of head and neck however did not reveal any large vessel occlusion. Rule out cardioembolism. * Atrial fibrillation, on anticoagulation. Patient is compliant with medication, as it is given by caregiver. * Dysphagia due to above. * Diabetes. * Vascular dementia. Plan: * Patient has dysphagia, therefore will undergo NGT placement for medications. * Urgent MRI of the brain to evaluate for the extent of stroke. CTA showed no large vessel occlusion. * Continue medications by NGT when placed. * DVT prophylaxis. * Patient will be continued on Aixaban 5 mg twice a day for now. * Blood pressure is controlled 132/74. * 2-D echo has been performed, results pending. * Patient's hemoglobin A1c 7.8 on 07/21/2019. * Discussed with patient's brother and sister, who are the decision maker at this time
[2019-08-12] MEDS ORDERED: NALOXONE 0.4 MG/ML 1 ML VIAL IV PRN (13:45)
--- NOTE | 2019-08-12 13:45 | P.HPIM ---
History of Present Illness H&P Date: 08/12/19 Chief Complaint: Unresponsive 83-year-old male presenting to the emergency Department as a transfer from [facility]. Patient was seen there and diagnosed with stroke. Patient last known well around 9:30 last night. History was taken from the family at the bedside as patient is not verbal currently. Patient does normally talk without difficulty before this. Patient has eye deviation to the left. There is also right-sided neglect. Computed tomography scan did have evidence of developing left MCA infarct. Patient does have history of previous stroke that was reported by family many years ago. Patient does have chronic left-sided deficits from that. Patient was recently diagnosed with aspiration pneumonia and was started on prednisone course. In the emergency department his laboratory workup was unremarkable. Review of Systems Unobtainable secondary to current mental status Past Medical History Past Medical History: Coronary Artery Disease (CAD), CVA/TIA, Diabetes Mellitus, Hyperlipidemia, Hypertension, Myocardial Infarction ([place]), Skin Disorder, Thyroid Disorder Additional Past Medical History / Comment(s): NIDDM type II, current cellulitis L lower leg, 1995 CVA with L sided weakness, gait dysfunction-pt is wheelchair bound, past L clavicle fx, hypothyroid. Last Myocardial Infarction Date:: 1994 History of Any Multi-Drug Resistant Organisms: None Reported Past Surgical History: Coronary Bypass/CABG, Heart Catheterization With Stent Additional Past Surgical History / Comment(s): Pt states he had 4 vessel CABG in 1994 at [facility] in [place], PCI with stent "several yrs ago," R caratid endartectomy, bilateral cataract removals with lens implants. Past Anesthesia/Blood Transfusion Reactions: No Reported Reaction Date of Last Stent Placement:: "several years ago." Past Psychological History: No Psychological Hx Reported Smoking Status: Never smoker Past Alcohol Use History: None Reported Past Drug Use History: None Reported - Past Family History Father Family Medical History: Myocardial Infarction ([place]) Additional Family Medical History / Comment(s): Father of a [place] at the age of 65 yrs. Mother Family Medical History: Myocardial Infarction ([place]) Additional Family Medical History / Comment(s): Mother of a [place] at the age of 69yrs. Medications and Allergies Home Medications Medication Instructions Recorded Confirmed Type Atenolol [Tenormin] 25 mg PO BID 04/16/17 08/12/19 History Isosorbide Mononitrate ER [Imdur] 30 mg PO DAILY 04/16/17 08/12/19 History Simvastatin [Zocor] 20 mg PO HS 04/16/17 08/12/19 History amLODIPine BESYLATE [Norvasc] 5 mg PO BID 04/16/17 08/12/19 History sitaGLIPtin PHOSPHATE [Januvia] 100 mg PO DAILY 04/16/17 08/12/19 History Furosemide [Lasix] 40 mg PO DAILY 08/12/19 08/12/19 History Levothyroxine Sodium [Levoxyl] 50 mcg PO DAILY 08/12/19 08/12/19 History Sennosides/Docusate Sodium 1 tab PO BID 08/12/19 08/12/19 History [Senna-S Laxative Tablet] Theophylline 24 Hour [Jeff-24] 200 mg PO DAILY 08/12/19 08/12/19 History glipiZIDE [Glucotrol] 5 mg PO BID 08/12/19 08/12/19 History hydrALAZINE HCL [Apresoline] 50 mg PO Q8H 08/12/19 08/12/19 History Allergies Allergy/AdvReac Type Severity Reaction Status Date / Time No Known Allergies Allergy Verified 08/12/19 11:40 Physical Exam Vitals: Vital Signs Temp Pulse Resp BP Pulse Ox 08/12/19 11:30 97.5 F L 68 18 132/74 96 08/12/19 11:03 59 L 16 123/60 96 08/12/19 10:45 84 16 135/73 99 08/12/19 10:30 76 16 135/71 99 08/12/19 10:23 98 F 63 16 126/57 98 Intake and Output 08/11/19 08/12/19 08/12/19 22:59 06:59 14:59 Other: Weight 85.729 kg Constitutional: No acute distress Eyes: Eyes deviated to the left. Anicteric sclerae, moist conjunctiva, no lid- lag, PERRLA, ENMT: Oropharynx clear, no erythema, exudates Neck: Supple, FROM, no masses, or JVD, No carotid bruits, No thyromegaly Lungs: Clear to auscultation, Clear to percussion, Normal respiratory effort, no accessory muscle use Cardiovascular: Irregularly irregular, normal rate. No murmurs, gallops, or rubs, 1+ peripheral edema Abdominal: Soft, Nontender, no guarding, rebound or rigidity, Normoactive bowel sounds, No hepatomegaly, No splenomegaly, No palpable mass Skin: Normal temperature, tone, texture, turgor, no induration, No subcutaneous nodules, No rash, lesions, No ulcers Extremities: No digital cyanosis, No clubbing, Pedal pulses intact and symmetrical, Radial pulses intact and symmetrical, No calf tenderness Neuro: Patient is unresponsive, right-sided neglect, left eye gaze Assessment and Plan Plan: Acute CVA Case discussed with neurology Patient is already on eliquis, will continue per neurology, NG tube, neuro checks every 4 hours, PT and OT Telemetry Diabetes Mellitus type II Hold meds Sliding scale insulin with blood sugar checks every 6 hours. Essential hypertension Permissive hypertension for the first 24-48 hours Hold BP meds for now Chronic Coronary Artery Disease (CAD), Hyperlipidemia, congestive heart failure, hypothyroidism Stable Resume meds Patient will be admitted more than 2 midnights, as inpatient CODE STATUS: DO NOT RESUSCITATE, no ventilator, discussed his and the whole family at the bedside.
[2019-08-12] MEDS: CLOPIDOGREL 75 MG TAB PO SCH (15:01)
--- NOTE | 2019-08-12 15:02 | MR ---
MR brain without contrast HISTORY: Cerebral vascular accident, altered mental status Multiplanar multisequence imaging through the brain, correlation CT brain dated 04/16/2017 There is restricted diffusion along the cortex of the left frontal and parietal lobes, corresponding abnormal signal noted on inversion recovery T2-weighted sequences. Diffuse periventricular, subcortic al, juxtacortical and pericallosal hyperintensity present on inversion recovery T2-weighted sequences , also noted within the joe. There is cortical atrophy. Ex vacuo phenomenon suspected likely due to volume loss in the right cerebrum from prior infarct. No evident hemorrhage or hydrocephalus. Corpus callosum, pituitary, cervical medullary junction, cerebellopontine angles are unremarkable. Inflammat ory change present in the mastoid air cells on the right, ethmoid air cells IMPRESSION: Subacute infarct left frontal and parietal lobes. Evidence of remote infarct, probable ch ronic small vessel ischemia and age-related atrophy. Technique is limited likely due to patient's con dition.
[2019-08-12 18:19] LABS: Glucose,Whole Blood 132 mg/dL (75-99)
[2019-08-12] MEDS: INSULIN ASPART (NovoLOG) 100 UNIT/ML VIAL SQ SCH ×2 (18:39→21:12)
--- NOTE | 2019-08-12 19:18 | XR ---
EXAMINATION TYPE: XR abdomen 1V DATE OF EXAM: 08/12/2019 COMPARISON: NONE HISTORY: Check tube placement TECHNIQUE: 2 views supine FINDINGS: There is nasogastric tube with the tip over the fundus of the stomach. There is some infilt rate and atelectasis at both lung bases. There are multiple sigmoid diverticula. There is no sign of free air. IMPRESSION: NG tube is in the gastric fundus.
[2019-08-12 20:37] LABS: Glucose,Whole Blood 122 mg/dL (75-99)
[2019-08-13] MEDS: APIXABAN 5 MG TAB PO SCH ×2 (01:53→21:52)
[2019-08-13] MEDS: ATORVASTATIN 40 MG TAB PO SCH ×2 (01:53→21:52)
[2019-08-13 06:10] LABS: Glucose,Whole Blood 116 mg/dL (75-99)
[2019-08-13 06:49] LABS: Basophils % (A) 0 %; Eosinophils % (A) 0 %; HCT 37.2 % (39.0-53.0); HGB 11.2 gm/dL (13.0-17.5); Hypochromasia Moderate; Lymphocytes # (A) 1.4 k/uL (1.0-4.8); Lymphocytes % (A) 20 %; MCH 28.5 pg (25.0-35.0); MCV 94.9 fL (80.0-100.0); Mean Platelet Volume 8.1; Monocytes # (A) 0.6 k/uL (0-1.0); Monocytes % (A) 9 %; Neutrophils # (A) 4.6 k/uL (1.3-7.7); Neutrophils % (A) 68 %; Platelet Count 362 k/uL (150-450); RBC 3.92 m/uL (4.30-5.90); RDW 14.6 % (11.5-15.5); WBC 6.8 k/uL (3.8-10.6)
[2019-08-13 06:59] LABS: African American GFR (CKD) >90 (>60 ml/min/1.73 sqM); Anion Gap 3 mmol/L; Blood Urea Nitrogen 18 mg/dL (9-20); Carbon Dioxide 36 mmol/L (22-30); Chloride 106 mmol/L (98-107); Glucose 112 mg/dL (74-99); Potassium 3.7 mmol/L (3.5-5.1); Sodium 145 mmol/L (137-145)
[2019-08-13 07:00] LABS: ALT 11 U/L (4-49); AST 21 U/L (17-59); Albumin 2.7 g/dL (3.5-5.0); Alkaline Phosphatase 71 U/L (38-126); Calcium 8.5 mg/dL (8.4-10.2); Cholesterol 98 mg/dL (<200); HDL Cholesterol 24 mg/dL (40-60); LDL Cholesterol,Calculated 54 mg/dL (0-99); Non-African American GFR(CKD) 84 (>60 ml/min/1.73 sqM); Phosphorus 3.2 mg/dL (2.5-4.5); Total Bilirubin 0.9 mg/dL (0.2-1.3); Total Protein 5.9 g/dL (6.3-8.2); Triglycerides 100 mg/dL (<150)
[2019-08-13] MEDS: INSULIN ASPART (NovoLOG) 100 UNIT/ML VIAL SQ SCH ×4 (08:09→21:51)
[2019-08-13] MEDS: SODIUM CHLORIDE 0.9% 1,000 ML IV SCH ×2 (08:35→17:09)
[2019-08-13] MEDS ORDERED: ASPIRIN 325 MG TAB PO SCH (09:00)
[2019-08-13] MEDS: CLOPIDOGREL 75 MG TAB PO SCH (09:39)
[2019-08-13] MEDS: LEVOTHYROXINE 50 MCG TAB PO SCH (09:39)
--- NOTE | 2019-08-13 11:07 | P.PN ---
Subjective Progress Note Date: 08/13/19 Principal diagnosis: In bed , NG tube in place , not communicative Family at bedside Objective - Vital Signs Vital signs: Vital Signs Temp 97.4 F L 08/13/19 08:00 Pulse 55 L 08/13/19 08:00 Resp 24 08/13/19 08:00 BP 157/53 08/13/19 08:00 Pulse Ox 96 08/13/19 08:00 Intake & Output 08/12/19 08/13/19 08/13/19 18:59 06:59 18:59 Intake Total 200 Balance 200 Weight 85.729 kg 94.5 kg Intake: Intake, IV Titration 200 Amount Sodium Chloride 0.9% 1, 200 000 ml @ 100 mls/hr IV . Q10H [facility] Rx#:[id number] Oral 0 Other: Voiding Method Indwelling Catheter Indwelling Catheter Indwelling Catheter - Exam Constitutional: No acute distress Eyes: Eyes deviated to the left. ENMT: Oropharynx clear Neck: Supple, FROM Lungs: Clear to auscultation, Clear to percussion, Normal respiratory effort, no accessory muscle use Cardiovascular: Irregularly irregular, normal rate. No murmurs, gallops, or r ubs, 1+ peripheral edema Abdominal: Soft, Nontender, no guarding, rebound or rigidity, Normoactive bowel sounds Skin: Normal temperature, tone, texture, turgor, no induration Extremities: No digital cyanosis, No clubbing Neuro: Patient is unresponsive, right-sided neglect, left eye gaze, non commu nicative - Labs CBC & Chem 7: 08/13/19 06:09 08/13/19 06:09 Labs: Abnormal Lab Results - Last 24 Hours (Table) 08/12/19 08/12/19 08/13/19 Range/Units 18:18 20:35 06:08 RBC (4.30-5.90) m/uL Hgb (13.0-17.5) gm/dL Hct (39.0-53.0) % MCHC (31.0-37.0) g/dL Carbon Dioxide (22-30) mmol/L Glucose (74-99) mg/dL POC Glucose (mg/dL) 132 H 122 H 116 H (75-99) mg/dL Total Protein (6.3-8.2) g/dL Albumin (3.5-5.0) g/dL HDL Cholesterol (40-60) mg/dL 08/13/19 08/13/19 Range/Units 06:09 06:09 RBC 3.92 L (4.30-5.90) m/uL Hgb 11.2 L (13.0-17.5) gm/dL Hct 37.2 L (39.0-53.0) % MCHC 30.0 L (31.0-37.0) g/dL Carbon Dioxide 36 H (22-30) mmol/L Glucose 112 H (74-99) mg/dL POC Glucose (mg/dL) (75-99) mg/dL Total Protein 5.9 L (6.3-8.2) g/dL Albumin 2.7 L (3.5-5.0) g/dL HDL Cholesterol 24 L (40-60) mg/dL Assessment and Plan Plan: Acute/Subacute CVA Left Frontal/parietal lobe Patient is already on eliquis, will continue per neurology, NG tube, neuro c hecks every 4 hours, PT and OT Telemetry speech evaluating ECHO pending Diabetes Mellitus type II with hyperglycemia Hold meds Sliding scale insulin with blood sugar checks every 6 hours. Essential hypertension Hold BP meds for now, monitor Chronic Coronary Artery Disease (CAD), Hyperlipidemia, congestive heart failure, unspecified type , hypothyroidism Stable Dispo: to Rehab in 1-2 days CODE STATUS: DO NOT RESUSCITATE, no ventilator Treatment plan discussed with patient's family at bedside
--- NOTE | 2019-08-13 12:01 | P.CRDCN ---
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 He has not followed up in cardiology's office for several years, his family thinks he used to see Dr. Miguel at that time. Patient was transferred here from [facility]. Apparently he was fine during the night, he lives at home now with a caregiver, around 10 PM patient was found to be aphasic and had right- sided hemiparesis. His blood pressure on arrival there was 150/102 with a heart rate in the 100s, respirations 20, his EKG on presentation there showed atrial fibrillation with a right bundle branch block pattern, UA was negative, sodium 147, potassium 3.3, BUN 26 with a creatinine of 1.3, liver panel was normal, white blood cell count 9.1, hemoglobin 12.3, platelets 386. Chest x-ray showed pulmonary venous congestion with basilar infiltrates and/or atelectasis. Small effusion is noted. No large vessel intracranial arterial occlusion no jose.patient was transferred here to [facility] for further evaluation and treatment.his EKG shows atrial fibrillation with a heart rate in the 60s, occasional PVC.MRI showed subacute infarct of the left frontal and parietal lobes. Evidence of remote infarct, probable chronic small vessel ischemia and age-related atrophy.I pressure 160/90 with a heart rate of 60, 97% on 2 L of oxygen.laboratory data here, white blood cell count 6.8, hemoglobin 11.2, platelet count 362. Sodium 145, potassium 3.7, BUN 18, creatinine 0.7.at the time of my examination this morning, the patient continues to be aphasic, family is at bedside. Past Medical History Past Medical History: Coronary Artery Disease (CAD), Cancer, Heart Failure, CVA/TIA, Diabetes Mellitus, Hyperlipidemia, Hypertension, Myocardial Infarction (VT), Pneumonia, Skin Disorder, Thyroid Disorder Additional Past Medical History / Comment(s): NIDDM type II, current cellulitis L lower leg, 1995 CVA with L sided weakness, gait dysfunction-pt is wheelchair bound, past L clavicle fx, hypothyroid. Had aspiriation pneumonia recently. skin cancer Last Myocardial Infarction Date:: 1994 History of Any Multi-Drug Resistant Organisms: None Reported Past Surgical History: Coronary Bypass/CABG, Heart Catheterization With Stent Additional Past Surgical History / Comment(s): Pt states he had 4 vessel CABG in 1994 at [facility] in [place], PCI with stent "several yrs ago," R c aratid endartectomy, bilateral cataract removals with lens implants. Past Anesthesia/Blood Transfusion Reactions: No Reported Reaction Date of Last Stent Placement:: "several years ago." Past Psychological History: No Psychological Hx Reported Additional Psychological History / Comment(s): Pt resides alone in his own home. He is wheelchair bound. He has a caregiver who comes to the house from morning until noon and then comes back in the evenings. She assists his with ADLs. He manages his own medications. Everything he needs is on one level. He has meals on wheels. He does not drive, his brother has a wheelchair assessible van and takes pt to appts. He uses a L shoe with a brace. He needs assistance transferring into his wheelchair. Smoking Status: Never smoker Past Alcohol Use History: None Reported Past Drug Use History: None Reported - Past Family History Father Family Medical History: Myocardial Infarction (VT) Additional Family Medical History / Comment(s): Father of a VT at the age of 65 yrs. Mother Family Medical History: Myocardial Infarction (VT) Additional Family Medical History / Comment(s): Mother of a VT at the age of 69yrs. Medications and Allergies Home Medications Medication Instructions Recorded Confirmed Type Atenolol [Tenormin] 25 mg PO BID 04/16/17 08/12/19 History Isosorbide Mononitrate ER [Imdur] 30 mg PO DAILY 04/16/17 08/12/19 History Simvastatin [Zocor] 20 mg PO HS 04/16/17 08/12/19 History amLODIPine BESYLATE [Norvasc] 5 mg PO BID 04/16/17 08/12/19 History sitaGLIPtin PHOSPHATE [Januvia] 100 mg PO DAILY 04/16/17 08/12/19 History Furosemide [Lasix] 40 mg PO DAILY 08/12/19 08/12/19 History Levothyroxine Sodium [Levoxyl] 50 mcg PO DAILY 08/12/19 08/12/19 History Sennosides/Docusate Sodium 1 tab PO BID 08/12/19 08/12/19 History [Senna-S Laxative Tablet] Theophylline 24 Hour [Jeff-24] 200 mg PO DAILY 08/12/19 08/12/19 History glipiZIDE [Glucotrol] 5 mg PO BID 08/12/19 08/12/19 History hydrALAZINE HCL [Apresoline] 50 mg PO Q8H 08/12/19 08/12/19 History Allergies Allergy/AdvReac Type Severity Reaction Status Date / Time No Known Allergies Allergy Verified 08/12/19 11:40 Physical Exam Vitals: Vital Signs Temp Pulse Pulse Resp BP BP BP 08/13/19 11:37 96.9 F L 58 L 20 160/69 08/13/19 08:00 97.4 F L 55 L 24 157/53 08/13/19 04:00 98.1 F 58 L 16 129/60 08/13/19 00:00 98.2 F 88 16 128/84 08/12/19 20:00 96 18 08/12/19 17:21 97.6 F 96 18 133/56 08/12/19 16:05 46 L 17 118/69 08/12/19 13:30 98.0 F 68 18 146/89 08/12/19 12:30 98.1 F 65 18 148/68 Pulse Ox 08/13/19 11:37 97 08/13/19 08:00 96 08/13/19 04:00 96 08/13/19 00:00 08/12/19 20:00 08/12/19 17:21 96 08/12/19 16:05 99 08/12/19 13:30 100 08/12/19 12:30 100 Intake and Output 08/12/19 08/13/19 08/13/19 22:59 06:59 14:59 Intake Total 200 0 400 Balance 200 0 400 Intake: IV 400 Sodium Chloride 0.9% 1, 400 000 ml @ 100 mls/hr IV . Q10H [facility] Rx#:[id number] Intake, IV Titration 200 0 Amount Sodium Chloride 0.9% 1, 200 0 000 ml @ 100 mls/hr IV . Q10H [facility] Rx#:[id number] Oral 0 Other: Voiding Method Indwelling Catheter Indwelling Catheter Indwelling Catheter Weight 85.729 kg 94.5 kg PHYSICAL EXAMINATION: GENERAL:83-year-old gentleman in no acute distress at the time of my examination HEENT: Head is atraumatic, normocephalic. Pupils equal, round. Sclera anicteric. Conjunctiva are clear. Mucous membranes of the mouth are moist. Neck is supple. There is no elevated jugular venous pressure. No Caroid bruit is heard. HEART EXAMINATION: heart S1 and S2 irregularly irregular a systolic murmur is heard CHEST EXAMINATION:[ Lungs are clear to auscultation and precussion. No chest wall tenderness is noted on palpation or with deep breathing.] ABDOMEN: [ Soft, nontender. Bowel sounds are heard. No organomegaly noted]. EXTREMITIES:[ 2+ peripheral pulses with no evidence of peripheral edema and no calf tenderness noted]. NEUROLOGIC patient is awake, alert , he has a left gaze, and head deviation. He is completely mute, not able to speak any words. He has hemiplegia on the left which is chronic from his previous stroke to 16 years ago. His right side also appears weak although does not appear flaccid. Pupils are round and reacting. He has bilateral Babinski, reflexes are brisk. Results 08/13/19 06:09 08/13/19 06:09 Cardiac Enzymes 08/13/19 Range/Units 06:09 AST 21 (17-59) U/L Lipids 08/13/19 Range/Units 06:09 Triglycerides 100 (<150) mg/dL Cholesterol 98 (<200) mg/dL HDL Cholesterol 24 L (40-60) mg/dL CBC 08/13/19 Range/Units 06:09 WBC 6.8 (3.8-10.6) k/uL RBC 3.92 L (4.30-5.90) m/uL Hgb 11.2 L (13.0-17.5) gm/dL Hct 37.2 L (39.0-53.0) % Plt Count 362 (150-450) k/uL Comprehensive Metabolic Panel 08/13/19 Range/Units 06:09 Sodium 145 (137-145) mmol/L Potassium 3.7 (3.5-5.1) mmol/L Chloride 106 (98-107) mmol/L Carbon Dioxide 36 H (22-30) mmol/L BUN 18 (9-20) mg/dL Creatinine 0.79 (0.66-1.25) mg/dL Glucose 112 H (74-99) mg/dL Calcium 8.5 (8.4-10.2) mg/dL AST 21 (17-59) U/L ALT 11 (4-49) U/L Alkaline Phosphatase 71 (38-126) U/L Total Protein 5.9 L (6.3-8.2) g/dL Albumin 2.7 L (3.5-5.0) g/dL Current Medications Generic Name Dose Route Start Last Admin Trade Name Freq PRN Reason Stop Dose Admin Apixaban 5 mg 08/12/19 21:00 08/13/19 01:53 Eliquis PO 5 mg BID [facility] Administration Atorvastatin Calcium 40 mg 08/12/19 21:00 08/13/19 01:53 Lipitor PO 40 mg HS [facility] Administration Clopidogrel Bisulfate 75 mg 08/12/19 11:45 08/13/19 09:39 Plavix PO 75 mg DAILY [facility] Administration Sodium Chloride 1,000 mls @ 100 mls/hr 08/12/19 11:30 08/13/19 08:35 Saline 0.9% IV 100 mls/hr .Q10H [facility] Administration Insulin Aspart 0 unit 08/12/19 17:30 08/13/19 08:09 Novolog SQ Not Given ACHS [facility] Protocol Levothyroxine Sodium 50 mcg 08/13/19 06:30 08/13/19 09:39 Synthroid PO 50 mcg 0630 [facility] Administration Naloxone HCl 0.2 mg 08/12/19 13:45 Narcan IV Q2M PRN Opioid Reversal Intake and Output 08/12/19 08/13/19 08/13/19 22:59 06:59 14:59 Intake Total 200 0 400 Balance 200 0 400 Intake: IV 400 Sodium Chloride 0.9% 1, 400 000 ml @ 100 mls/hr IV . Q10H [facility] Rx#:[id number] Intake, IV Titration 200 0 Amount Sodium Chloride 0.9% 1, 200 0 000 ml @ 100 mls/hr IV . Q10H [facility] Rx#:[id number] Oral 0 Other: Voiding Method Indwelling Catheter Indwelling Catheter Indwelling Catheter Weight 85.729 kg 94.5 kg 08/13/19 06:09 08/13/19 06:09 EKG Interpretations (text) EKG shows atrial fibrillation with a controlled ventricular response, occasional PVC Assessment and Plan Plan: assessment and plan #1acute CVA #2 persistent atrial fibrillation on Eliquis 5 mg one tablet by mouth twice a day #3 hypertension #4 diabetes #5 hyperlipidemia #6 history of prior strokes 16 years ago #7 hypothyroidism #8 vascular dementia Plan We will obtain an echocardiogram with Doppler study. Continue Eliquis 5 mg one tablet by mouth twice a day if okay with neurology. The patient's baseline status prior to this episode, he was in a wheelchair, but otherwise to communicate it without any difficulty. I did have a discussion with the family this morning regarding a watchman device, and determining whether or not the patient is a candidate based on his overall functional status. We will continue to follow. DNP note has been reviewed, I agree with a documented findings and plan of care. Patient was seen and examined.
[2019-08-13 12:10] LABS: Glucose,Whole Blood 119 mg/dL (75-99)
[2019-08-13 14:31] VITALS: BMI 28.2
--- NOTE | 2019-08-13 16:55 | P.PN ---
Subjective Progress Note Date: 08/13/19 Patient continues to be globally aphasic, mute, does not follow commands, cannot repeat or name any word. Continues to have left head and gaze deviation. Left hemiparesis is spastic and chronic. Now patient has mild right hemiparesis. The most effect of stroke is on the speech and dysphagia at this time. Patient has NGT in place. Objective - Vital Signs Vital signs: Vital Signs Temp 97.7 F 08/13/19 15:23 Pulse 69 08/13/19 15:23 Resp 20 08/13/19 15:23 BP 168/75 08/13/19 15:23 Pulse Ox 96 08/13/19 15:23 Intake & Output 08/12/19 08/13/19 08/13/19 18:59 06:59 18:59 Intake Total 200 400 Output Total 400 Balance 200 0 Weight 85.729 kg 94.5 kg 94.5 kg Intake: IV 400 Sodium Chloride 0.9% 1, 400 000 ml @ 100 mls/hr IV . Q10H [facility] Rx#:[id number] Intake, IV Titration 200 Amount Sodium Chloride 0.9% 1, 200 000 ml @ 100 mls/hr IV . Q10H [facility] Rx#:[id number] Oral 0 Output: Urine 400 Other: Voiding Method Indwelling Catheter Indwelling Catheter Indwelling Catheter - Exam As above in detail. Patient has right facial asymmetry. Patient is mute. Patient has left gaze deviation. Chronically spastic left side. Mild right hemiparesis. - Labs CBC & Chem 7: 08/13/19 06:09 08/13/19 06:09 Labs: Abnormal Lab Results - Last 24 Hours (Table) 08/12/19 08/12/19 08/13/19 Range/Units 18:18 20:35 06:08 RBC (4.30-5.90) m/uL Hgb (13.0-17.5) gm/dL Hct (39.0-53.0) % MCHC (31.0-37.0) g/dL Carbon Dioxide (22-30) mmol/L Glucose (74-99) mg/dL POC Glucose (mg/dL) 132 H 122 H 116 H (75-99) mg/dL Total Protein (6.3-8.2) g/dL Albumin (3.5-5.0) g/dL HDL Cholesterol (40-60) mg/dL 08/13/19 08/13/19 08/13/19 Range/Units 06:09 06:09 12:08 RBC 3.92 L (4.30-5.90) m/uL Hgb 11.2 L (13.0-17.5) gm/dL Hct 37.2 L (39.0-53.0) % MCHC 30.0 L (31.0-37.0) g/dL Carbon Dioxide 36 H (22-30) mmol/L Glucose 112 H (74-99) mg/dL POC Glucose (mg/dL) 119 H (75-99) mg/dL Total Protein 5.9 L (6.3-8.2) g/dL Albumin 2.7 L (3.5-5.0) g/dL HDL Cholesterol 24 L (40-60) mg/dL Assessment and Plan Assessment: * 83-year-old male with history of atrial fibrillation, currently on anticoagulation with Apixaban 5 mg twice a day, developed acute onset of focal deficits with possible right hemiparesis and aphasia with left gaze deviation. 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 CTA of head and neck however did not reveal any large vessel occlusion. Possible cardioembolism. * Atrial fibrillation, on anticoagulation. Patient is compliant with medication, as it is given by caregiver. * Dysphagia due to above. * Diabetes. * Vascular dementia. Plan: * Patient has dysphagia, at present has NGT placement for medications. Family is not interested in PEG placement. * MRI of the brain revealed subacute infarct left frontal and parietal lobes. Evidence of remote infarct, probable chronic small vessel ischemia and age- related atrophy. * CTA showed no large vessel occlusion. * DVT prophylaxis. * Patient will be continued on Aixaban 5 mg twice a day for now. * Blood pressure is controlled 132/74. * 2-D echo has been performed, results pending. * Patient's hemoglobin A1c 7.8 on 07/21/2019. * Overall prognosis doesn't appear favorable, because of the extent of aphasia, and evidence of involvement of bilateral hemispheres from recent and remote strokes. * Discussed with patient's brother and sister, who are the decision maker at this time
[2019-08-13 17:10] LABS: Glucose,Whole Blood 114 mg/dL (75-99)
--- NOTE | 2019-08-13 19:17 | ECHOF ---
Referral Reason:Thrombus MEASUREMENTS -------- HEIGHT: 182.9 cm WEIGHT: 85.7 kg BP: 123/60 RVIDd: 4.0 cm (< 3.3) IVSd: 1.5 cm (0.6 - 1.1) LVIDd: 4.6 cm (3.9 - 5.3) LVPWd: 1.5 cm (0.6 - 1.1) IVSs: 1.7 cm LVIDs: 3.3 cm LVPWs: 2.1 cm LAESV Index (A-L): 49.61 ml/m IVSd: 1.4 cm (0.6 - 1.1) LVIDd: 5.4 cm (3.9 - 5.3) LVPWd: 1.4 cm (0.6 - 1.1) IVSs: 1.8 cm LVIDs: 3.5 cm LVPWs: 2.5 cm EDV(Teich): 139 ml ESV(Teich): 52 ml EF(Teich): 63 % %FS: 34 % SV(Teich): 87 ml Ao Diam: 3.5 cm (2.0 - 3.7) AV Cusp: 1.9 cm (1.5 - 2.6) LA Diam: 4.8 cm (2.7 - 3.8) AR PHT: 843 ms RAP: 5.00 mmHg RVSP: 45.55 mmHg FINDINGS -------- Atrial fibrillation. This was a technically adequate study. Pt. not compliant. The left ventricular size is normal. There is moderate concentric left ventricular hypertrophy. T here is moderate global hypokinesis of LV . Overall left ventricular systolic function is moderatel y impaired with, an EF between 35 - 40 %. The right ventricle is moderately enlarged. LA is severely dilated >40 ml/m2 The right atrium is mildly enlarged. Interatrial and interventricular septum intact. There is mild aortic valve sclerosis. There is izya-su-tdsgtbov aortic regurgitation. There is no evidence of aortic stenosis. Mild mitral annular calcification present. Moderate mitral regurgitation is present. Ouxb-ih-dyqsyoyx tricuspid regurgitation present. There is mild to moderate pulmonary hypertension. The right ventricular systolic pressure, as measured by Doppler, is 45.55mmHg. There is no pulmonic regurgitation present. The aortic root size is normal. IVC Not well visulized. There is no pericardial effusion. CONCLUSIONS -------- 1. Atrial fibrillation. 2. This was a technically adequate study. 3. Pt. not compliant. 4. The left ventricular size is normal. 5. There is moderate concentric left ventricular hypertrophy. 6. There is moderate global hypokinesis of LV . 7. Overall left ventricular systolic function is moderately impaired with, an EF between 35 - 40 %. 8. The right ventricle is moderately enlarged. 9. LA is severely dilated >40 ml/m2 10. The right atrium is mildly enlarged. 11. There is mild aortic valve sclerosis. 12. There is nsfy-iq-tyqqkkxs aortic regurgitation. 13. There is no evidence of aortic stenosis. 14. Mild mitral annular calcification present. 15. Moderate mitral regurgitation is present. 16. Vzzw-vu-qualecuz tricuspid regurgitation present. 17. There is mild to moderate pulmonary hypertension. 18. There is no pulmonic regurgitation present. 19. IVC Not well visulized. 20. There is no pericardial effusion. LIBRARY MANAGER: Cortney Brown RDCS
[2019-08-13 20:29] LABS: Glucose,Whole Blood 103 mg/dL (75-99)
[2019-08-14] MEDS: LEVOTHYROXINE 50 MCG TAB PO SCH (06:15)
[2019-08-14 06:30] LABS: Glucose,Whole Blood 96 mg/dL (75-99)
[2019-08-14] MEDS: INSULIN ASPART (NovoLOG) 100 UNIT/ML VIAL SQ SCH ×4 (06:32→21:03)
[2019-08-14 06:56] LABS: HCT 40.5 % (39.0-53.0); HGB 12.2 gm/dL (13.0-17.5); Hypochromasia Marked; MCH 28.8 pg (25.0-35.0); Mean Platelet Volume 8.2; Platelet Count 378 k/uL (150-450); RBC 4.22 m/uL (4.30-5.90); RDW 14.4 % (11.5-15.5); WBC 8.9 k/uL (3.8-10.6)
[2019-08-14 07:13] LABS: ALT 10 U/L (4-49); AST 24 U/L (17-59); African American GFR (CKD) >90 (>60 ml/min/1.73 sqM); Albumin 2.8 g/dL (3.5-5.0); Alkaline Phosphatase 74 U/L (38-126); Anion Gap 6 mmol/L; Blood Urea Nitrogen 12 mg/dL (9-20); Calcium 8.4 mg/dL (8.4-10.2); Carbon Dioxide 31 mmol/L (22-30); Chloride 107 mmol/L (98-107); Glucose 100 mg/dL (74-99); Non-African American GFR(CKD) 86 (>60 ml/min/1.73 sqM); Potassium 3.7 mmol/L (3.5-5.1); Sodium 144 mmol/L (137-145); Total Bilirubin 0.9 mg/dL (0.2-1.3)
[2019-08-14] MEDS: CLOPIDOGREL 75 MG TAB PO SCH (09:26)
[2019-08-14] MEDS: APIXABAN 5 MG TAB PO SCH ×2 (09:26→21:13)
--- NOTE | 2019-08-14 10:12 | P.PN ---
Subjective Progress Note Date: 08/14/19 Principal diagnosis: Stroke Patient has not made any significant progress since presentation. He is still with profound left-sided weakness and right-sided neglect. Gaze is deviated to the left. Objective - Vital Signs Vital signs: Vital Signs Temp 97.5 F L 08/14/19 08:00 Pulse 119 H 08/14/19 08:00 Resp 16 08/14/19 08:00 BP 152/74 08/14/19 08:00 Pulse Ox 92 L 08/14/19 08:00 Intake & Output 08/13/19 08/14/19 08/14/19 18:59 06:59 18:59 Intake Total 400 400 0 Output Total 400 800 Balance 0 -400 0 Weight 94.5 kg 91.5 kg Intake: IV 400 Sodium Chloride 0.9% 1, 400 000 ml @ 100 mls/hr IV . Q10H [facility] Rx#:[id number] Intake, IV Titration 400 Amount Sodium Chloride 0.9% 1, 400 000 ml @ 50 mls/hr IV . Q20H [facility] Rx#:[id number] Oral 0 Output: Urine 400 800 Other: Voiding Method Indwelling Catheter Indwelling Catheter - Exam Constitutional: No acute distress Eyes: Eyes deviated to the left. Anicteric sclerae, moist conjunctiva, no lid- lag, PERRLA, ENMT: Oropharynx clear, no erythema, exudates Neck: Supple, FROM, no masses, or JVD, No carotid bruits, No thyromegaly Lungs: Clear to auscultation, Clear to percussion, Normal respiratory effort, no accessory muscle use Cardiovascular: Irregularly irregular, normal rate. No murmurs, gallops, or rubs, 1+ peripheral edema Abdominal: Soft, Nontender, no guarding, rebound or rigidity, Normoactive bowel sounds, No hepatomegaly, No splenomegaly, No palpable mass Skin: Normal temperature, tone, texture, turgor, no induration, No subcutaneous nodules, No rash, lesions, No ulcers Extremities: No digital cyanosis, No clubbing, Pedal pulses intact and symmetrical, Radial pulses intact and symmetrical, No calf tenderness Neuro: Patient is unresponsive, right-sided neglect, left eye gaze - Labs CBC & Chem 7: 08/14/19 06:21 08/14/19 06:21 Labs: Abnormal Lab Results - Last 24 Hours (Table) 08/13/19 08/13/19 08/13/19 Range/Units 12:08 17:08 20:27 RBC (4.30-5.90) m/uL Hgb (13.0-17.5) gm/dL MCHC (31.0-37.0) g/dL Carbon Dioxide (22-30) mmol/L Glucose (74-99) mg/dL POC Glucose (mg/dL) 119 H 114 H 103 H (75-99) mg/dL Total Protein (6.3-8.2) g/dL Albumin (3.5-5.0) g/dL 08/14/19 08/14/19 Range/Units 06:21 06:21 RBC 4.22 L (4.30-5.90) m/uL Hgb 12.2 L (13.0-17.5) gm/dL MCHC 30.0 L (31.0-37.0) g/dL Carbon Dioxide 31 H (22-30) mmol/L Glucose 100 H (74-99) mg/dL POC Glucose (mg/dL) (75-99) mg/dL Total Protein 6.0 L (6.3-8.2) g/dL Albumin 2.8 L (3.5-5.0) g/dL Assessment and Plan Plan: Acute CVA Case discussed with neurology Patient is already on eliquis, continue PT and OT Diabetes Mellitus type II Hold meds Sliding scale insulin with blood sugar checks every 6 hours. Essential hypertension Permissive hypertension for the first 24-48 hours Hold BP meds for now End-of-life care Hospice discussed with family member at the bedside, likely family will decide to pursue hospice, awaiting other family members. Chronic Coronary Artery Disease (CAD), Hyperlipidemia, congestive heart failure, hypothyroidism Stable Resume meds CODE STATUS: DO NOT RESUSCITATE, no ventilator. Anticipated disposition: Likely home versus fpc with hospice
[2019-08-14 11:56] LABS: Glucose,Whole Blood 95 mg/dL (75-99)
--- NOTE | 2019-08-14 14:56 | P.PN ---
Subjective Progress Note Date: 08/14/19 Principal diagnosis: Persistant Afib PROGRESS NOTE: 07/19/19 Patient remains lying in bed resting in no current distress with brother at [facility]. Patient remains nonverbal, unable to swallow and currently has an NG tube. Generalized weakness and right-sided weakness remains. Most recent BP 160/90. Controlled afib on Tele. EF is reduced at 35-40%. No current improvement in patient's status. Poor prognosis. PHYSICAL EXAMINATION: HEENT: Head is atraumatic, normocephalic. Pupils are equal, round. Sclerae anicteric. Conjunctivae are clear. Mucous membranes of the mouth are moist. Neck is supple. There is no jugular venous distention. No carotid bruit is heard. No thyromegaly. LUNGS: Bilateral diminished with noted wheeze. No rales or rhonchi. No chest wall tenderness is noted on palpation or with deep breathing. HEART: Irregular without murmurs, rubs or gallops. S1 and S2 heard. ABDOMEN: Abdominal exam revealed normal bowel sounds. The abdomen was soft, non- tender, and without masses, organomegaly, or appreciable enlargement of the abdominal aorta. EXTREMITIES: Examination of the extremities revealed easily palpable radial, femoral and pedal pulses. There was no cyanosis, clubbing. 2-3+ edema noted. No calf tenderness noted. VASCULAR: Radial and dorsalis pedis pulses palpated, no evidence of clubbing. NEUROLOGIC: Patient is awake, but not alert and oriented x0. There are general neurologic abnormalities. FINAL IMPRESSION: 1. Acute CVA 2. Persistant Afib, controlled rate on Eliquis 5mg twice daily 3. Hypertension 4. Hyperlipidemia 5. vascular dementia PLAN: Continue same plan of care with no changes to pt medical or medication regime. No current improvement in patient's neurological status. Poor prognosis. Aspiration precautions advised. Objective - Vital Signs Vital signs: Vital Signs Temp 98.4 F 08/14/19 12:00 Pulse 65 08/14/19 12:00 Resp 16 08/14/19 14:25 BP 163/72 08/14/19 12:00 Pulse Ox 96 08/14/19 12:00 Intake & Output 08/13/19 08/14/19 08/14/19 18:59 06:59 18:59 Intake Total 400 400 0 Output Total 400 800 700 Balance 0 -400 -700 Weight 94.5 kg 91.5 kg Intake: IV 400 Sodium Chloride 0.9% 1, 400 000 ml @ 100 mls/hr IV . Q10H [facility] Rx#:[id number] Intake, IV Titration 400 Amount Sodium Chloride 0.9% 1, 400 000 ml @ 50 mls/hr IV . Q20H [facility] Rx#:[id number] Oral 0 Output: Urine 400 800 700 Other: Voiding Method Indwelling Catheter Indwelling Catheter Indwelling Catheter - Labs CBC & Chem 7: 08/14/19 06:21 08/14/19 06:21 Labs: Abnormal Lab Results - Last 24 Hours (Table) 08/13/19 08/13/19 08/14/19 Range/Units 17:08 20:27 06:21 RBC 4.22 L (4.30-5.90) m/uL Hgb 12.2 L (13.0-17.5) gm/dL MCHC 30.0 L (31.0-37.0) g/dL Carbon Dioxide (22-30) mmol/L Glucose (74-99) mg/dL POC Glucose (mg/dL) 114 H 103 H (75-99) mg/dL Total Protein (6.3-8.2) g/dL Albumin (3.5-5.0) g/dL 08/14/19 Range/Units 06:21 RBC (4.30-5.90) m/uL Hgb (13.0-17.5) gm/dL MCHC (31.0-37.0) g/dL Carbon Dioxide 31 H (22-30) mmol/L Glucose 100 H (74-99) mg/dL POC Glucose (mg/dL) (75-99) mg/dL Total Protein 6.0 L (6.3-8.2) g/dL Albumin 2.8 L (3.5-5.0) g/dL
[2019-08-14] MEDS: SODIUM CHLORIDE 0.9% 1,000 ML IV SCH (16:31)
[2019-08-14 17:18] LABS: Glucose,Whole Blood 86 mg/dL (75-99)
[2019-08-14 20:59] LABS: Glucose,Whole Blood 80 mg/dL (75-99)
[2019-08-14] MEDS: ATORVASTATIN 40 MG TAB PO SCH (21:13)
[2019-08-15] MEDS: SODIUM CHLORIDE 0.9% 1,000 ML IV SCH (06:12)
[2019-08-15] MEDS: INSULIN ASPART (NovoLOG) 100 UNIT/ML VIAL SQ SCH ×4 (06:12→21:49)
[2019-08-15] MEDS: LEVOTHYROXINE 50 MCG TAB PO SCH (06:14)
[2019-08-15 06:20] LABS: Glucose,Whole Blood 97 mg/dL (75-99)
[2019-08-15] MEDS: APIXABAN 5 MG TAB PO SCH ×2 (09:45→19:44)
[2019-08-15] MEDS: CLOPIDOGREL 75 MG TAB PO SCH (09:45)
--- NOTE | 2019-08-15 09:53 | P.PN ---
Subjective Progress Note Date: 08/15/19 Principal diagnosis: Stroke Patient is still without significant progress since presentation. He is still with profound left-sided weakness and right-sided neglect. Gaze is deviated to the left. Objective - Vital Signs Vital signs: Vital Signs Temp 98.8 F 08/15/19 08:00 Pulse 77 08/15/19 08:00 Resp 16 08/15/19 08:00 BP 154/71 08/15/19 08:00 Pulse Ox 92 L 08/15/19 08:00 Intake & Output 08/14/19 08/15/19 08/15/19 18:59 06:59 18:59 Intake Total 0 800 Output Total 700 900 Balance -700 -100 Weight 92.5 kg Intake: Intake, IV Titration 800 Amount Sodium Chloride 0.9% 1, 800 000 ml @ 50 mls/hr IV . Q20H [facility] Rx#:[id number] Oral 0 Output: Urine 700 900 Other: Voiding Method Indwelling Catheter Indwelling Catheter - Exam Constitutional: No acute distress Eyes: Eyes deviated to the left. Anicteric sclerae, moist conjunctiva, no lid- lag, PERRLA, ENMT: Oropharynx clear, no erythema, exudates Neck: Supple, FROM, no masses, or JVD, No carotid bruits, No thyromegaly Lungs: Clear to auscultation, Clear to percussion, Normal respiratory effort, no accessory muscle use Cardiovascular: Irregularly irregular, normal rate. No murmurs, gallops, or rubs, 1+ peripheral edema Abdominal: Soft, Nontender, no guarding, rebound or rigidity, Normoactive bowel sounds, No hepatomegaly, No splenomegaly, No palpable mass Skin: Normal temperature, tone, texture, turgor, no induration, No subcutaneous nodules, No rash, lesions, No ulcers Extremities: No digital cyanosis, No clubbing, Pedal pulses intact and symmetrical, Radial pulses intact and symmetrical, No calf tenderness Neuro: Patient is unresponsive, right-sided neglect, left eye gaze - Labs CBC & Chem 7: 08/14/19 06:21 08/14/19 06:21 Assessment and Plan Plan: Acute CVA No significant recovery so far Patient is already on eliquis, and plavix continue PT and OT Diabetes Mellitus type II Hold meds Sliding scale insulin with blood sugar checks every 6 hours. Essential hypertension Continue meds Stable End-of-life care Hospice discussed with brother on 08/14 at the bedside, he is agreeable to pursuing hospice care, awaiting other family members. Chronic Coronary Artery Disease (CAD), Hyperlipidemia, congestive heart failure, hypothyroidism Stable Resume meds CODE STATUS: DO NOT RESUSCITATE, no ventilator. Anticipated disposition: Likely home versus group home with hospice
[2019-08-15 12:37] LABS: Glucose,Whole Blood 88 mg/dL (75-99)
--- NOTE | 2019-08-15 15:48 | PN ---
PROGRESS NOTE Mr. Borges is a gentleman with a recent stroke and aphasia. Remains in atrial fib. Rate control is good. Vitals are stable. No JVD. S1-S2 heard normally. Irregular rhythm noted. Short systolic murmur noted. Lungs reveal diminished air entry. Abdomen and lower extremity exam unchanged. Plan is to continue anticoagulation and rate control. Prognosis remains poor. We will await further input from Neurology. MMODL / IJN: [id number] /
[2019-08-15 18:00] LABS: Glucose,Whole Blood 81 mg/dL (75-99)
[2019-08-15] MEDS: ATORVASTATIN 40 MG TAB PO SCH (19:44)
--- NOTE | 2019-08-15 20:25 | XR ---
EXAMINATION TYPE: XR abdomen 1V DATE OF EXAM: 08/15/2019 COMPARISON: 08/12/2019 HISTORY: NG tube placement TECHNIQUE: 2 views supine FINDINGS: There is nasogastric tube and the tip is probably in the distal esophagus. There is no sign of intestinal obstruction or pneumoperitoneum. There is infiltrate and atelectasis left lower lobe. IMPRESSION: NG tube is not in the stomach. Left lower lobe infiltrate and atelectasis unchanged.
[2019-08-15 20:32] LABS: Glucose,Whole Blood 104 mg/dL (75-99)
[2019-08-15 23:52] LABS: Glucose,Whole Blood 80 mg/dL (75-99)
[2019-08-16] MEDS: SODIUM CHLORIDE 0.9% 1,000 ML IV SCH (05:23)
[2019-08-16] MEDS: LEVOTHYROXINE 50 MCG TAB PO SCH (05:23)
[2019-08-16 06:06] LABS: Glucose,Whole Blood 87 mg/dL (75-99)
[2019-08-16] MEDS: INSULIN ASPART (NovoLOG) 100 UNIT/ML VIAL SQ SCH ×2 (07:38→12:00)
--- NOTE | 2019-08-16 08:43 | XR ---
EXAMINATION TYPE: XR abdomen 1V DATE OF EXAM: 08/16/2019 7:43 AM CLINICAL HISTORY: NG tube placement. TECHNIQUE: Single supine KUB image of the abdomen is obtained. COMPARISON: 08/15/2019 FINDINGS: Enteric tube remains in the cephalad in position with its fenestrated portion above the gas troesophageal junction although this has been advanced in the interim. This should again be advanced approximately 6 cm for optimal placement. Post CABG changes the chest are noted with cardiomegaly. Re trocardiac airspace disease is seen. Right hemidiaphragm elevation is noted. Interstitial prominence throughout. Diffuse osseous demineralization. Old healed left clavicular fracture is partially seen. IMPRESSION: 1. Although the enteric tube has been advanced the fenestrated portion is above the gastroesophageal junction. Advancement of approximately 6 cm is recommended for optimal placement. 2. Retrocardiac airspace disease may represent atelectasis or pneumonia.
[2019-08-16 09:13] VITALS: RESP 18; TEMP 98.4
[2019-08-16] MEDS: CLOPIDOGREL 75 MG TAB PO SCH (09:23)
[2019-08-16] MEDS: APIXABAN 5 MG TAB PO SCH (09:23)
[2019-08-16 11:14] VITALS: BP 166/68; PULSE 70
[2019-08-16 11:59] LABS: Glucose,Whole Blood 81 mg/dL (75-99)
--- NOTE | 2019-08-16 12:22 | P.DS ---
Providers Date of admission: 08/12/19 11:28 Expected date of discharge: 08/16/19 Attending physician: Jose Plunkett MD Consults: 08/12/19 11:29 Consult Physician Urgent Consulting Provider: Kesha Cuba Consult Reason/Comments: cva Do you want consulting provider notified?: Yes 08/12/19 13:06 Consult Physician Urgent Consulting Provider: Calvin Resendiz Consult Reason/Comments: a fib Do you want consulting provider notified?: Yes Primary care physician: [facility] Hospital Course: 83-year-old male with extensive PMH with previous stroke, recently discharged from rehab, requires 24-hour supervision and assistance, wheelchair bound but able to feed himself and communicate appropriately initially presented to the ED at [facility] for aphasia, and right-sided hemiparesis. CT of the head without contrast showed decreased attenuation of the left MCA which may reflect acute CVA. Patient was transferred to [facility] for further workup and treatment. CTA head and neck showed reconstitution of the V4 segment left vertebral artery and left PICA, moderate irregularities throughout the bilateral carotid siphons. MRI of the brain showed subacute infarct in the left frontal and parietal lobes. Echocardiogram showed EF 35-40% with moderate global hypokinesis and moderate concentric LVH. Patient was noted to have dysphagia and was unable to tolerate oral intake. NG tube was placed for medications. Family was not interested in PEG tube placement. Patient was noted to be in atrial fibrillation on telemetry. He was started on Eliquis for anticoagulation. He was started on Plavix and Lipitor for CVA. His home medication of Synthroid was resumed for hypothyroidism. Patient was seen and examined. No acute events overnight. Patient with no neurological improvement over the weekend. Family seems agreeable to hospice. General: [non toxic], [no distress], [appears at stated age] Derm: [warm], [dry] Head: [atraumatic], [normocephalic], [symmetric] Eyes: [no lid lag], [anicteric sclera] Mouth: [no lip lesion], [mucus membranes moist] Cardiovascular: [S1S2 reg], [irregularly irregular], [positive DP pulse bilateral], Lungs: [CTA bilateral], [no rhonchi, no rales] , [no accessory muscle use] Abdominal: [soft], [ nontender to palpation], [no guarding], [no appreciable organomegaly] Ext: [no gross muscle atrophy], [1+ lower extremity edema], [upper and lower extremity contractures] Neuro: [Unable to determine] Psych: [Unable to determine] Acute CVA Atrial fibrillation Diabetes mellitus Hypertension Functional quadriplegia with declining quality of life Euvolemic CHF Hypothyroidism CAD As seen on MRI brain. Echocardiogram complete. CTA head and neck complete. Lipid panel shows low LDL of 24. Plans: Advanced neurochecks. Continue Plavix and Lipitor. Telemetry monitoring. Follow PT and OT and ST. Follow neurology recommendations. Family leaning on hospice. Rate controlled. Plans: Eliquis for anticoagulation. Point of care glucose 80. Plans: Insulin sliding scale. Regular Accu-Cheks. Hypoglycemic precautions. BP 166/68. Plans: Family leaning on hospice. Holding antihypertensives due to nothing by mouth status. Monitor vitals, adjust medications as necessary. Plans: Continue to monitor. Plans: Continue Synthroid. Plans: Continue Plavix and Lipitor. [Patient admitted after CVA. No improvement. I did a [id number] review for possible rehab, declined due to poor functional status and inability to participate. Family leaning on hospice, order placed, waiting on POA sister to arrive for discussion.] Pertinent Studies: CTA head and neck, echocardiogram, MRI brain, abdominal x-ray Patient Condition at Discharge: Poor Plan - Discharge Summary Discharge Rx Participant: No New Discharge Prescriptions: No Action RX: amLODIPine BESYLATE [Norvasc] 5 mg PO BID RX: Isosorbide Mononitrate ER [Imdur] 30 mg PO DAILY RX: Atenolol [Tenormin] 25 mg PO BID RX: sitaGLIPtin PHOSPHATE [Januvia] 100 mg PO DAILY RX: Simvastatin [Zocor] 20 mg PO HS hydrALAZINE HCL [Apresoline] 50 mg PO Q8H Theophylline 24 Hour [Jeff-24] 200 mg PO DAILY Furosemide [Lasix] 40 mg PO DAILY Levothyroxine Sodium [Levoxyl] 50 mcg PO DAILY glipiZIDE [Glucotrol] 5 mg PO BID Sennosides/Docusate Sodium [Senna-S Laxative Tablet] 1 tab PO BID Discharge Medication List RX: Atenolol [Tenormin] 25 mg PO BID 04/16/17 [History] RX: Isosorbide Mononitrate ER [Imdur] 30 mg PO DAILY 04/16/17 [History] RX: Simvastatin [Zocor] 20 mg PO HS 04/16/17 [History] RX: amLODIPine BESYLATE [Norvasc] 5 mg PO BID 04/16/17 [History] RX: sitaGLIPtin PHOSPHATE [Januvia] 100 mg PO DAILY 04/16/17 [History] Furosemide [Lasix] 40 mg PO DAILY 08/12/19 [History] Levothyroxine Sodium [Levoxyl] 50 mcg PO DAILY 08/12/19 [History] Sennosides/Docusate Sodium [Senna-S Laxative Tablet] 1 tab PO BID 08/12/19 [History] Theophylline 24 Hour [Jeff-24] 200 mg PO DAILY 08/12/19 [History] glipiZIDE [Glucotrol] 5 mg PO BID 08/12/19 [History] hydrALAZINE HCL [Apresoline] 50 mg PO Q8H 08/12/19 [History] Follow up Appointment(s)/Referral(s): Damian Andrew MD [Primary Care Provider] - 1-2 days
== END 2019-08-16 16:10 | disposition hospice, home (50) | DRG 64 ==
LOC: EC 10:15 → 3SCARD 11:28
PROVIDERS: ADMIT Family Medicine; ATTEND Family Medicine
DX: I63.512 Cerebral infarction due to unspecified occlusion or stenosis of left middle cerebral artery (principal); R40.2213 Coma scale, best verbal response, none, at hospital admission; R53.2 Functional quadriplegia; I48.19 Other persistent atrial fibrillation; G81.91 Hemiplegia, unspecified affecting right dominant side; R41.4 Neurologic neglect syndrome; Z96.1 Presence of intraocular lens; E03.9 Hypothyroidism, unspecified; E78.5 Hyperlipidemia, unspecified; Z51.5 Encounter for palliative care; Z66 Do not resuscitate; R40.2353 Coma scale, best motor response, localizes pain, at hospital admission; R40.2143 Coma scale, eyes open, spontaneous, at hospital admission; I25.10 Atherosclerotic heart disease of native coronary artery without angina pectoris; I11.0 Hypertensive heart disease with heart failure; I45.10 Unspecified right bundle-branch block; E11.65 Type 2 diabetes mellitus with hyperglycemia; I50.9 Heart failure, unspecified; F01.50 Vascular dementia, unspecified severity, without behavioral disturbance, psychotic disturbance, mood disturbance, and anxiety; R13.10 Dysphagia, unspecified; I69.320 Aphasia following cerebral infarction; Z79.899 Other long term (current) drug therapy; Z79.84 Long term (current) use of oral hypoglycemic drugs; Z79.01 Long term (current) use of anticoagulants; Z79.82 Long term (current) use of aspirin; Z79.890 Hormone replacement therapy; Z82.49 Family history of ischemic heart disease and other diseases of the circulatory system; Z85.828 Personal history of other malignant neoplasm of skin; Z95.1 Presence of aortocoronary bypass graft; Z95.5 Presence of coronary angioplasty implant and graft; Z99.3 Dependence on wheelchair; Z98.42 Cataract extraction status, left eye; Z98.41 Cataract extraction status, right eye; I25.2 Old myocardial infarction
CPT/HCPCS: 70496; 70498; 70551; 74018; 80053; 80061; 83735; 84100; 85025; 85027; 93306; 96360; 96361; 99285